=== PATIENT | female | born 1935 | race Caucasian/White ===

== ENCOUNTER → 2017-11-14 | Outpatient (CLI) | payer OTHER, SELFPAY ==
[~2017-11-14] MED LIST: ACETAMINOPHEN-1 EAC1 PO; ACETAMINOPHEN500 M1 PO; ACYCLOVIR 400400 MG PO; ALDACTONE25 MG; ASPIRIN325 PO; AUGMENTIN 875-1 EACH PO; COMBIVENT INH; CYCLOBENZAPRINE5 MG PO; DICLOFENAC SODI75 MG; DICLOFENAC SODI75 MG PO; DOXYCYCLINE 10100 MG PO; FLEXERIL PO; FLONASE 0.05%50 MCG NASAL; HYDROCHLOROTHIA25 M2 PO; HYDROCODON-ACE1 EAC7 PO; IBUPROFEN 800800 M1 PO; LASIX 20 MG TAB20 MG PO; LIDOPATCH1 EACH TOP; MIRALAX17 GM PO; NAPROSYN500 MG PO; NORCO 5-325 TA1 EACH PO; OMEPRAZOLE20 M2 PO; OTHER MISCELL; POTASSIUM CHLO10 ME1 PO; PREDNISONE 10 M10 MG PO; PRINIVIL5 MG PO; PROPAFENONE 15150 MG PO; PROTONIX40 M1 PO; QVAR8.7 G1 IH; QVAR8.7 G1 INH; SENNA-DOCUSATE1 EACH PO; SPIRONOLACTONE25 M1; SSD CREAM 1% 5050 GM TOP; TRAMADOL 50 MG50 MG PO; TUMS
--- NOTE | 2017-11-16 10:50 | S ---
[place] [address] SURGICAL PATH RPT PROCEDURE Name: DMITRY RANDOLPH Room: [facility].#: [id number] Admission: 11/14/17 Date of : 37 Discharge: Report #: [id number] Path Case #: [id number] PATHOLOGY REPORT COLLECTION DATE: 11/14/2017 RECEIVED DATE: 11/15/2017 SUBMITTING PHYS: Dr. Franklin Smith OTHER PHYS: Ronny Eubanks DO SPECIMEN(S) RECEIVED: A.Right plantar foot-wound * * * * * * * * * * * * FINAL DIAGNOSIS: Soft tissue with bone "right plantar foot wound": - Chronic inflammation with remote hemorrhage and fragmentation of bone and cartilage. See comment. COMMENT: These findings are consistent with wound. Suggest clinical and radiological correlation and follow up as clinically indicated. (SHA:[facility]; 11/16/2017) PATHOLOGIST: Grayson Ledesma M.D. REPORT ELECTRONICALLY SIGNED BY: Grayson Ledesma M.D. DATE/TIME: 11/16/2017 10:49 * * * * * * * * * * * * GROSS PATHOLOGY: The specimen is received in formalin, labeled "Dmitry Randolph right foot bone biopsy". Received is a segment of granular, dark bartholomew bone with attached light bartholomew soft tissue measuring 0.6 x 0.5 x 0.3 cm in greatest dimensions. The specimen is submitted entirely in cassette A1, following decalcification. (DAC; 11/15/2017) CLINICAL HISTORY: Wound right plantar foot INITIAL CPT CODE(S): A; 79641, 23937 Professional services performed by [facility] at [facility], [address] [place] [address] , [place] [address]. Technical services performed by [facility] at [address] [place] [address], [facility] [address], [place] [address]. [place] [address] SURGICAL PATH RPT PROCEDURE Name: DMITRY RANDOLPH Room: [facility] Khurram#: [id number] Admission: 11/14/17 Date of : 37 Discharge: Report #: [id number] Path Case #: [id number] [facility] [address] [address] PHONE: [phone] DIRECTOR: Chris Nguyen M.D. * * * END OF REPORT * * *
== END ==
LOC: M.WC 00:07
DX: L89.892 Pressure ulcer of other site, stage 2 (principal); S91.301D Unspecified open wound, right foot, subsequent encounter; M14.671 Charcot's joint, right ankle and foot; M14.672 Charcot's joint, left ankle and foot; E78.5 Hyperlipidemia, unspecified; K21.9 Gastro-esophageal reflux disease without esophagitis; Z85.828 Personal history of other malignant neoplasm of skin; Z90.710 Acquired absence of both cervix and uterus; X58.XXXD Exposure to other specified factors, subsequent encounter

== ENCOUNTER → 2017-11-21 | Outpatient (CLI) | payer OTHER | LOC: M.WC 01:54 | DX: L89.892 Pressure ulcer of other site, stage 2 (principal); M14.671 Charcot's joint, right ankle and foot; M14.672 Charcot's joint, left ankle and foot; E78.5 Hyperlipidemia, unspecified; I10 Essential (primary) hypertension; K21.9 Gastro-esophageal reflux disease without esophagitis; Z85.828 Personal history of other malignant neoplasm of skin; Z90.710 Acquired absence of both cervix and uterus ==

== ENCOUNTER → 2017-11-24 | Outpatient (CLI) | payer OTHER, SELFPAY | LOC: M.WC 01:22 | DX: E11.621 Type 2 diabetes mellitus with foot ulcer (principal); I70.235 Atherosclerosis of native arteries of right leg with ulceration of other part of foot; L97.511 Non-pressure chronic ulcer of other part of right foot limited to breakdown of skin; L89.892 Pressure ulcer of other site, stage 2; E11.610 Type 2 diabetes mellitus with diabetic neuropathic arthropathy; L84 Corns and callosities; I10 Essential (primary) hypertension; E78.5 Hyperlipidemia, unspecified; K21.9 Gastro-esophageal reflux disease without esophagitis; F41.9 Anxiety disorder, unspecified; Z85.828 Personal history of other malignant neoplasm of skin; Z90.710 Acquired absence of both cervix and uterus ==

== ENCOUNTER → 2017-11-30 | Outpatient (CLI) | payer OTHER, SELFPAY | LOC: M.WC 11:00 | DX: E11.621 Type 2 diabetes mellitus with foot ulcer (principal); L97.511 Non-pressure chronic ulcer of other part of right foot limited to breakdown of skin; L89.892 Pressure ulcer of other site, stage 2; I70.235 Atherosclerosis of native arteries of right leg with ulceration of other part of foot; E11.610 Type 2 diabetes mellitus with diabetic neuropathic arthropathy; E78.5 Hyperlipidemia, unspecified; I10 Essential (primary) hypertension; K21.9 Gastro-esophageal reflux disease without esophagitis; F41.9 Anxiety disorder, unspecified; Z85.828 Personal history of other malignant neoplasm of skin; Z90.710 Acquired absence of both cervix and uterus ==

== ENCOUNTER → 2017-12-12 | Outpatient (CLI) | payer OTHER | LOC: M.WC 01:45 | DX: L89.892 Pressure ulcer of other site, stage 2 (principal); S91.301D Unspecified open wound, right foot, subsequent encounter; M14.671 Charcot's joint, right ankle and foot; M14.672 Charcot's joint, left ankle and foot; E78.5 Hyperlipidemia, unspecified; I10 Essential (primary) hypertension; K21.9 Gastro-esophageal reflux disease without esophagitis; Z85.828 Personal history of other malignant neoplasm of skin; Z90.710 Acquired absence of both cervix and uterus; X58.XXXD Exposure to other specified factors, subsequent encounter ==

== ENCOUNTER → 2017-12-26 | Outpatient (CLI) | payer OTHER | LOC: M.WC 12-19 05:27 | DX: L89.892 Pressure ulcer of other site, stage 2 (principal); I10 Essential (primary) hypertension; L84 Corns and callosities; E78.5 Hyperlipidemia, unspecified; M14.671 Charcot's joint, right ankle and foot; M14.672 Charcot's joint, left ankle and foot; K21.9 Gastro-esophageal reflux disease without esophagitis; Z90.710 Acquired absence of both cervix and uterus; Z85.828 Personal history of other malignant neoplasm of skin ==

== ENCOUNTER → 2018-03-27 | Outpatient (CLI) | payer OTHER, SELFPAY ==
--- NOTE | 2018-07-31 15:23 | PATH ---
[address] [address] PATHOLOGY RPT PROCEDURE Name: RACHEL RANDOLPH Room: [facility] ESTELITA Paulson#: [id number] Admission: 03/27/18 Date of : 37 Discharge: Report #: [id number] Path Case #: [id number] L[facility] Accession Number: [id number] . 01 Material submitted: . RIGHT BREAST . 01 Clinical history: . 1.96 x 1.68 x 2.02 cm, 11:30 SA. . 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 See comment. LBQ/03/29/2018 . 02 Comment: Discussed with Dr. Ronny Tariq at approximately 11:45 a.m. on 03/30/2018. Reviewed with Dr. Victoriano Brown who agrees with the diagnosis. (TERRY:db; 03/30/2018) . This case was prepared and proofread by Dr. Fernando Tadeo and electronically released by Dr. Lala Plascencia. . 02 Electronically signed: . Lala Plascencia MD, Pathologist NPI- [id number] . 01 Gross description: . Received in formalin labeled "Rachel Randolph, right breast," are multiple needle cores of yellow-chamberlain fibrofatty tissue measuring 2.9 x 4.7 x 0.5 cm in aggregate dimensions. The tissue is submitted in its entirety in cassette A1 through A3. The cold ischemic time is approximately 6 minutes. The total formalin fixation time is approximately 33 hours and 40 minutes. (TSD; 03/27/2018) TOB/TOB . 02 Pathologist provided ICD-10: D24.1, N60.31, N61.0, N60.41, N62 . 02 CPT . 292699 Specimen Comment: A duplicate report has been generated [place] [address] PATHOLOGY RPT PROCEDURE Name: RACHEL RANDOLPH Room: [facility]#: [id number] Admission: 03/27/18 Date of : 37 Discharge: Report #: [id number] Path Case #: [id number] Performed at: 01 [facility] [address] [place] [address] [address], [place], [place] [id number] MD Jacques Damian MD Phone: [phone] Performed at: [address] [id number] MD Lala Plascencia MD Phone: [phone]
== END | disposition home or self-care (01) ==
LOC: M.ULTRA 07:50
DX: D24.1 Benign neoplasm of right breast (principal); N60.31 Fibrosclerosis of right breast; N61.0 Mastitis without abscess; N60.41 Mammary duct ectasia of right breast; N62 Hypertrophy of breast; R92.1 Mammographic calcification found on diagnostic imaging of breast; I10 Essential (primary) hypertension; E78.00 Pure hypercholesterolemia, unspecified; M19.90 Unspecified osteoarthritis, unspecified site; Z90.710 Acquired absence of both cervix and uterus; Z79.899 Other long term (current) drug therapy; Z88.8 Allergy status to other drugs, medicaments and biological substances; Z98.890 Other specified postprocedural states; Z88.2 Allergy status to sulfonamides; Z87.19 Personal history of other diseases of the digestive system

== ENCOUNTER 2018-04-05 09:41 | Inpatient (IN) | payer OTHER, SELFPAY ==
[~2018-04-05] VITALS: Ht 157.5 cm; Wt 65.8 kg
[~2018-04-05 09:41] MED LIST changes: -ACETAMINOPHEN500 M1 PO; -ASPIRIN325 PO; -AUGMENTIN 875-1 EACH PO; -CYCLOBENZAPRINE5 MG PO; -HYDROCODON-ACE1 EAC7 PO; -PROPAFENONE 15150 MG PO; -PROTONIX40 M1 PO; -SSD CREAM 1% 5050 GM TOP
[2018-04-05 09:42] VITALS: BP 124/61
[2018-04-05] MEDS ORDERED: SSD CREAM 1% 5050 GM TOP (10:34)
[2018-04-05 10:36] LABS: ANION GAP 9 mmol/L (7-16); BUN 57 mg/dL (7-18); CALCIUM 9.9 mg/dL (8.5-10.1); CHLORIDE 105 mmol/L (98-107); CO2 23 mmol/L (21-32); GLUCOSE 109 mg/dL (70-99); POTASSIUM 4.2 mmol/L (3.5-5.1); SODIUM 137 mmol/L (136-145)
[2018-04-05 10:38] LABS: APTT 28.5 Seconds (25.0-31.3); INR 1.2; PROTIME 11.2 Seconds (9.20-11.50)
[2018-04-05 10:48] LABS: ALBUMIN 1.5 g/dL (3.4-5.0); ALKALINE PHOSPHATASE 295 U/L (46-116); NT-PRO BRAIN NAT PEPTIDE 6548 pg/mL (<300); SGOT 17 U/L (15-37); SGPT 14 U/L (30-65); TOTAL BILIRUBIN 0.8 mg/dL (<0.1-1.0); TOTAL PROTEIN 6.3 g/dL (6.4-8.2); TROPONIN-I LEVEL <0.06 ng/mL (<0.06)
[2018-04-05 10:53] LABS: HEMATOCRIT 27.4 % (37.0-47.0); HEMOGLOBIN 8.8 gm/dL (12.0-15.0); MCH 25.7 pg (26.0-34.0); MCV 80.2 fL (80.0-100.0); MPV 7.7 fl. (7.2-11.1); NUCLEATED RBCS 1 /100WBC; PLATELET COUNT* 319 thou/uL (150-400); RBC 3.41 mil/uL (4.20-5.00); RDW-CV 16.6 % (10.5-14.5)
[2018-04-05 10:55] LABS: WBC 40.7 thou/uL (4.0-11.0)
[2018-04-05 11:16] LABS: ABSOLUTE LYMPHOCYTES 1.2 thou/uL (0.8-5.3); ABSOLUTE MONOCYTES 1.2 thou/uL (0.0-1.2); ABSOLUTE NEUTROPHILS 38.3 thou/uL (1.6-8.1); ATYPICAL LYMPHS 1 %; PLATELET ESTIMATE ADEQUATE
[2018-04-05 12:20] LABS: URINE BILIRUBIN NEGATIVE (Negative); URINE BLOOD NEGATIVE (Negative); URINE CLARITY CLEAR; URINE COLOR YELLOW; URINE GLUCOSE-RANDOM NEGATIVE (Negative); URINE KETONES NEGATIVE (Negative); URINE LEUKOCYTES-REFLEX NEGATIVE (Negative); URINE NITRITE-REFLEX NEGATIVE (Negative); URINE PROTEIN TRACE (Negative); URINE UROBILINOGEN 0.2 E.U./dl (0.2-1.0)
[2018-04-05 13:26] VITALS: BP 105/43
--- NOTE | 2018-04-05 15:50 | NUR ---
PT ARRIVED TO THE FLOOR AT 1335. PT ORIENTED TO UNIT AND SERVICES, FOOD AND DRINK OFFERED. NURSING ASSESSMENT COMPLETED, SIGN LANGUAGE TRANSLATOR APPLIED. MEDICATIONS RECONCILED. PICTURES OF WOUNDS OBTAINED. PT RESTING IN BED WITH EYES CLOSED. NURSING WILL CONTINUE TO MONITOR.
[2018-04-05 16:00] VITALS: BP 108/34
--- NOTE | 2018-04-05 17:42 | NUR ---
PT CONTINUES TO BE A&O BUT LETHARGIC AND EASILY ARROUSED. PT HAS NO C/O AT THIS TIME AND ONLY ATE 25% OF HER DINNER. NURSING WILL CONTINUE TO MOONITOR AND COMPLETE HOURLY ROUNDING FOR SAFTEY AND COMFORT.
[2018-04-05 20:00] VITALS: BP 120/51
[2018-04-06] VITALS: BP 121/47
[2018-04-06 04:00] VITALS: BP 118/49
--- NOTE | 2018-04-06 06:52 | NUR ---
PATIENT RESTING IN BED MOST OF THE NIGHT, CONT. SR ON MONITOR. BED IN LOW POSITION, CALL LIGHT IN REACH, BED ALARM ON. DENIES COMPLAINTS OF PAIN, DISCOMFORT OR SOA. CONT. WITH PLAN OF CARE.
--- NOTE | 2018-04-06 07:33 | CON ---
[address] [address] CONSULTATION Name: AGUSTÍNDMITRY Helene Room: [address] IN M.R.#: [id number] Admission: 04/05/18 Attend Phys: Tawana Mcpherson Discharge: Date of : 36 Report #: [id number] THIS REPORT FOR: //name// CC: Ronny Eubanks Quincy Loyd DATE OF SERVICE: 04/05/2018 INFECTIOUS DISEASE CONSULTATION ATTENDING PHYSICIAN: Quincy Loyd DO REASON FOR CONSULTATION: Right lower extremity skin and soft tissue infection with cellulitis. HISTORY OF PRESENT ILLNESS: Chart reviewed, patient examined. This is an 82-year-old with history of chronic lower extremity wounds, specifically plantar aspect in the setting of what appears to be Charcot foot, although there is no evidence of diabetes mellitus, presented to the Emergency Room complaining of right lower extremity pain with progressive weakness, anorexia and family noted encephalopathy as well. Apparently, he has not had fevers, pulmonary or gastrointestinal related complaints. Has no evidence of diarrhea. On evaluation, had markedly elevated white count of 40.7. Chest x-ray, nothing to suggest pneumonitis. Lactic acid of 1.9, but x-ray did show changes consistent with Charcot arthropathy. There are no focal areas. There is question of osteomyelitis or fluid collection subcutaneously, given a dose of ceftriaxone and vancomycin. ALLERGIES: SULFA, STATINS, DIVALPROEX, CIPRO, TRAMADOL, SERTRALINE, ATORVASTATIN, ROSUVASTATIN. CURRENT MEDICATIONS: Include vancomycin, furosemide, lisinopril, ceftriaxone, pantoprazole, diclofenac. PAST MEDICAL HISTORY: History of hypertension, arthritis, high cholesterol, hernia, history of right foot previous MRSA related infection. SOCIAL HISTORY: Nonsmoker, no ethanol. FAMILY HISTORY: Noncontributory. REVIEW OF SYSTEMS: Not reliably obtained. PHYSICAL EXAMINATION: GENERAL: She appears chronically ill. She is not overtly distressed, difficult to arouse, [place] [address] CONSULTATION Name: DMITRY RANDOLPH Helene Room: [address] IN [facility]#: [id number] Admission: 04/05/18 Attend Phys: Tawana Mcpherson Discharge: Date of : 37 Report #: [id number] VITAL SIGNS: Temperature 97.4, pulse 88, respirations 11, blood pressure 105/43. SKIN: Warm, dry, no rashes. HEENT: Otherwise, unremarkable. NECK: Supple. LUNGS: Diminished breath sounds. HEART: Regular. I do not appreciate a murmur. ABDOMEN: Soft, nontender, nondistended. EXTREMITIES: On right lower extremity, there is clear inflammatory changes, although swollen, was not tautly edematous. Does have a plantar ulcer that appears to be chronic. There is marginal callus mildly to moderately inflamed. There is no significant purulence noted. It is warm to touch relative to the contralateral leg. LABORATORY AND X-RAY DATA: Lung exam is otherwise unremarkable. Protime of 11.2, INR 1.2. Electrolytes: Sodium 137, potassium 4.2, chloride 105, bicarbonate 23, BUN and creatinine 57 and 2.0, anion gap of 9, glucose of 109. LFTs remarkable only for alkaline phosphatase of 295, albumin 1.5, total protein 6.3. Chest x-ray, right rib fractures and humeral fracture, cardiomegaly. Lactic acid 1.9. CBC: White count of 40.7, H and H 8.8 and 27.4, platelets of 319. Urinalysis unremarkable. ASSESSMENT: Right lower extremity skin and soft tissue infection, cellulitis, the evidence is not certain that there is no deeper infection involved, difficult to ascertain given the Charcot changes. We will see how she responds clinically. We would try to culture the site. Continue empiric antimicrobials. <ELECTRONICALLY SIGNED> By: Javan Cantu MD 04/06/18 0733 [id number] Cantu MD /nt
[2018-04-06 08:00] VITALS: BP 128/53
[2018-04-06 12:21] VITALS: BP 108/30
--- NOTE | 2018-04-06 13:36 | NUR ---
ASSUMED CARE OF PT AT 0730. PT CONTINUES TO BE A&O AND FORGETFUL AND CONFUSED AT TIMES. VSS ON 2L VIA NC. PT TRACIN ST ON THE MONITOR. PT HAS A POOR APPETEITE AND IS EATING LESS THAN 25% OF HER MEALS. PT VOIDING VIA BEDPAN, LIGHT YELLOW URINE. PT HAS HAD C/O RLE PAIN BUT DENIES THE NEED FOR PHARMACOLOGICAL INTERVENTION. WILL CONTINUE HOURLY ROUNDING FOR COMFORT AND SAFTEY.
--- NOTE | 2018-04-06 15:40 | NUR ---
CM SPOKE TO THE PATIENT TO DISCUSS HOME SITAUTION, DISCHARGE PLANNING, AND TO INFORM OF THE ROLE OF CM. PATIENT ALERT, BUT FORGETFUL. PATIENTS DTR DEENA IN THE ROOM AND ANSWERING MOST QUESTIONS FOR THE PATIENT. PATIENT RESIDES AT HOME WITH HER GRANDSON AND HE ASSIST THE PATIENT NEEDED. PATIENTS DTR DEENA ALSO ASSIST THE PAIENT WITH WOUND CARE AND TRANSPORTATION, AND CHECKS IN ON HER FREQUENTLY. PATIENT USE A WALKER AT HOME FOR MOBILITY, BUT HAS A WHEELCHAIR TO USE INSIDE THE HOME AND A TRANSPORT CHAIR FOR OUTINGS. PATIENT HAS A HX OF HH WITH [facility] IN THE PAST. PATIENT HAS NO HX OF SNF AND DTR PLANS TO HAVE THE PATIENT RETURN HOME AT D/C. CM WILL REMAIN AVAILABLE TO ASSIST AND FOLLOW NEEDED.
[2018-04-06 16:05] VITALS: BP 109/41
--- NOTE | 2018-04-06 17:05 | EKG ---
[place] [address] ELECTROCARDIOGRAM REPORT Name: DMITRY RANDOLPH Room: [address] IN .R.#: [id number] Admission: 04/05/18 Attend Phys: Tawana Mcpherson Discharge: Date of : 36 Report #: [id number] THIS REPORT FOR: //name// [facility] ED Test Date: 2018-04-05 Test Time: 10:01:39 Pat Name: DMITRY RANDOLPH Department: Room: Gender: F Optical Glass Wet Inspector: Helene GELLER : 1935 Requested By: Franki Montelongo Order Number: [id number] MD: Thomas Rodas Measurements Intervals [place] Rate: 101 P: 49 RI: 161 QRS: 45 QRSD: 85 T: 33 QT: 320 QTc: 415 Interpretive Statements Sinus tachycardia Compared to ECG 10/06/2017 02:38:59 Sinus rhythm no longer present Electronically Signed On 04-06-2018 17:05:33 CDT by Thomas Rodas [email or web address] <ELECTRONICALLY SIGNED> By: Thomas Rodas MD, [facility] 04/06/18 7529 100 100 Thomas Rodas MD, [facility] /EPI
[2018-04-06 20:00] VITALS: BP 101/51
[2018-04-07 00:39] VITALS: BP 108/46
--- NOTE | 2018-04-07 00:50 | NUR ---
RECIEVED REPORT AND ASSUMED CARE OF PATIENT AT 1930. DIRECTOR OF BROADCAST IN PLACE TRACING SR W/ OCCASIONAL PACS. ASSESSMENT AND VITALS COMPLETED CHARTED, VSS. 2L O2 NC IN PLACE WITH SATS >92%. PATIENT A&OX4, FORGETFUL AT TIMES. PATIENT DENIES PAIN AND DISCOMFORT, HOWEVER, MOANS UPON MOVEMENT. VOLTAREN PO ADMINISTERED PER EMAR. GOAL IS TO MAINTAIN O2 SATURATION >92% ON 2L O2 NC AND REST COMFORTABLY. CALL LIGHT WITHIN REACH
[2018-04-07 04:23] VITALS: BP 127/50
--- NOTE | 2018-04-07 05:04 | NUR ---
PATIENT PROGRESSING TOWARDS GOALS: PATIENT REMAINS ON 2L O2 NC WITH SATS >92%. PATIENT RESTED COMFORTABLY THIS SHIFT. CALL LIGHT WITHIN REACH
[2018-04-07 08:00] VITALS: BP 144/65
[2018-04-07 12:29] VITALS: BP 109/59
[2018-04-07 17:24] VITALS: BP 116/56
--- NOTE | 2018-04-07 18:54 | NUR ---
ASSUMED CARE OF PT AT 0730. PT CONTINUES TO BE ALERT AND CONFUSED AT TIMES AND FORGETFUL. VSS ON 2L VIA NC. TRACING SR ON THE MONITOR, C/O BACK PAIN THIS MORNING WERE EFFECTIVELY REDUCED TO TOLERABLE LEVELS WITH PRN PO PAIN MEDS. PT HAS BEEN VOIDNG VIA BEDPAN AND HER APPETITE IS BETTER TODAY, EATING GREATER THAN 25% OF ALL MEALS TODAY. PT HAD WOUND TO RIGHT ANKLE AND FOOT. NURSING WILL CONTINUE TO MONITOR.
[2018-04-07 20:00] VITALS: BP 106/37
[2018-04-08] VITALS: BP 141/51
[2018-04-08 04:00] VITALS: BP 133/45
--- NOTE | 2018-04-08 04:40 | NUR ---
ASSUMED CARE OF PATIENT AT 1930. ASSESSMENT AND VITALS COMPLETED CHARTED, VSS ON 2L O2 NC. PATIENT PARTIALLY PROGRESSING TOWARDS GOALS: PATIENT REMAINS ALERT BUT CONFUSED AND FORGETFUL AT TIMES. PATIENT REMAINS INCONTINENT OF URINE. PAIN MANAGEMENT WITH PO PAIN MEDICATION AND REPOSITIONING. HOURLY ROUNDING OBSERVED. CALL LIGHT WITHIN REACH
[2018-04-08 05:07] LABS: HEMATOCRIT 24.4 % (37.0-47.0); HEMOGLOBIN 8.1 gm/dL (12.0-15.0); MCH 26.2 pg (26.0-34.0); MCHC 33.2 g/dL (28.0-37.0); MCV 78.7 fL (80.0-100.0); NUCLEATED RBCS 0 /100WBC; RBC 3.09 mil/uL (4.20-5.00); RDW-CV 16.2 % (10.5-14.5); WBC 28.7 thou/uL (4.0-11.0)
[2018-04-08 05:38] LABS: ALBUMIN 1.2 g/dL (3.4-5.0); CALCIUM 8.1 mg/dL (8.5-10.1); CREATININE 1.8 mg/dL (0.6-1.3); TOTAL BILIRUBIN 0.7 mg/dL (<0.1-1.0)
[2018-04-08 05:58] LABS: PLATELET COUNT* 242 thou/uL (150-400)
[2018-04-08 06:41] LABS: ABSOLUTE EOSINOPHILS 0.6 thou/uL (0.0-0.7); ABSOLUTE LYMPHOCYTES 1.4 thou/uL (0.8-5.3); ABSOLUTE MONOCYTES 1.7 thou/uL (0.0-1.2); ANISOCYTOSIS 1+; HYPOCHROMASIA 1+; PLATELET ESTIMATE ADEQUATE; POIKILOCYTOSIS 1+
[2018-04-08 10:00] VITALS: BP 135/54
[2018-04-08 12:00] VITALS: BP 120/42
[2018-04-08 16:00] VITALS: BP 102/48
--- NOTE | 2018-04-08 18:43 | NUR ---
ASSUMED CARE OF PT AT 0730. PT CONTINUES TO BE ALERT BUT CONFUSED AT TIMES, SHE MAKES STATEMENTS SUCH .'I MADE SOME RIBS AND WALDRON IN THERE FOR YOU.' PT VSS AND TRACING NSR ON THE MON ITOR. SHE HAS BEEN INCONT OF BLADDER TODAY AND HAD A BM ON THE BEDPAN. DRESSING TO RIGH FOOT CHANGED AND PICS TAKEN. PT RESTING IN BED WATCHING TV, NO APPARENT PAIN OR DISTRESS. NURSING WILL CONTINUE TO MONITOR.
[2018-04-08 20:18] VITALS: BP 126/54
[2018-04-09 00:15] VITALS: BP 122/54
[2018-04-09 04:09] VITALS: BP 116/48
--- NOTE | 2018-04-09 04:21 | NUR ---
ASSUMED PT CARE AT 1930, NURSING ASSESSMENT COMPLETED AT START OF SHIFT. PT TRACING SINUS RHYTHM WITH OCCASIONAL PACS ON FREIGHT ELEVATOR OPERATOR. Q2H REPOSITIONING COMPLETED, HOURLY ROUNDING COMPLETED, IV FLUIDS INFUSING. PRN PAIN MEDICATION ADMINSTERED, CALL LIGHT WITHIN REACH. NO FALLS THIS SHIFT.
[2018-04-09 05:38] LABS: HEMATOCRIT 21.3 % (37.0-47.0); MCH 26.1 pg (26.0-34.0); MCHC 32.7 g/dL (28.0-37.0); MCV 79.7 fL (80.0-100.0); RBC 2.68 mil/uL (4.20-5.00); WBC 26.7 thou/uL (4.0-11.0)
[2018-04-09 06:04] LABS: CREATININE 1.5 mg/dL (0.6-1.3); POTASSIUM 4.3 mmol/L (3.5-5.1); TOTAL BILIRUBIN 0.8 mg/dL (<0.1-1.0); TOTAL PROTEIN 5.6 g/dL (6.4-8.2)
--- NOTE | 2018-04-09 07:59 | NUR ---
PT RESTING IN BED, APPEARS O X 3-4 FORGETFUL, EASILY CONFUSED, WAS AABLE TO STATE SHE WAS AT [facility], STATES WAS MARCH 2018, UNSURE OF EXACT DATE. PT IS ABLE TO MAKE NEEDS KNOWSN, DENIES CHEST PAIN, SOB, PAIN OR DISCOMFORT. CONTACT ISOLATION FOR MRSA, R FOOR WOUND, HGB 7.0, WILL UPDATE PHYSICIAN STAFF
--- NOTE | 2018-04-09 08:08 | NUR ---
CALLED ANSWERING SERVICE, ALIN REQUEST CALL BACK FROM PROVIDER, [facility] 7.0
[2018-04-09 08:11] VITALS: BP 128/42
[2018-04-09 10:58] LABS: % SATURATION 12 % (20-39); IRON 16 ug/dL (50-175)
[2018-04-09 12:05] VITALS: BP 135/48
[2018-04-09 15:35] VITALS: BP 134/52
--- NOTE | 2018-04-09 18:37 | NUR ---
PT RESTING IN BED, PROGRESSING TOWARDS GOALS, INCONTINENT OF URINE TODAY, C/O GENERALIZED WEAKNESS, O X 3-4 FORGETFUL,EASILY CONFUSED , DENIES CHEST PAIN, SOB, . HAS R FOOT WOUND, FOLLWED BY ID, IS IN CONTACT ISIOLATION FOR MRSA. WOUND CARE , HAS BEEN CONSULTED. FOLLOWS WEOUND CARE OUT PATIENT. PT HAS R FOOT WOUND DRESSING THAT APPEARS C/D/I. ON IV ABX. SR ON MONITOE, REC IVF NS C 20 K AT 50 ML X 1 BAG , HGB 7,0 THIS AM, NO ORDERS TO TRANSFUSE
[2018-04-09 19:44] VITALS: BP 119/49
[2018-04-10] VITALS (7 sets, daily range): BP systolic 118–147; BP diastolic 47–74
[2018-04-10 05:08] LABS: HEMATOCRIT 21.5 % (37.0-47.0); MCH 25.7 pg (26.0-34.0); MCHC 31.6 g/dL (28.0-37.0); MCV 81.3 fL (80.0-100.0); RBC 2.64 mil/uL (4.20-5.00); RDW-CV 15.9 % (10.5-14.5); WBC 17.2 thou/uL (4.0-11.0)
--- NOTE | 2018-04-10 05:19 | NUR ---
ASSUMED PT CARE AT 1930, NURSING ASSESSMENT COMPLETED AT START OF SHIFT, PT VOICED NO CONCERNS THIS SHIFT. PT TRACING SR WITH PACS AT START OF SHIFT. AT APPROX 2330, PT TRACING AFIB/AFLUTTER WITH HR IN 90'S TO 11O'S. RHYTHM BACK AND FORTH FROM SR WITH PACS TO AFIB. EKG OBTAINED. PT BACK IN SINUS RHYTHM WITH PACS WITH HR OF 81 AT 0524. Q2H REPOSITIONING COMPLETED, PT REFUSED TO TURN AT TIMES. PT EDUCATED ON IMPORTANCE OF REPOSITIONING Q2H TO PREVENT SKIN BREAKDOWN. PT REQUIRES REINFORCEMENT. HOURLY ROUNDING COMPLETED, CALL LIGHT WITHIN REACH. NO FALLS THIS SHIFT.
[2018-04-10 05:24] LABS: CALCIUM 7.6 mg/dL (8.5-10.1); CREATININE 1.4 mg/dL (0.6-1.3); POTASSIUM 4.2 mmol/L (3.5-5.1)
[2018-04-10 05:27] LABS: HEMOGLOBIN 6.8 gm/dL (12.0-15.0)
--- NOTE | 2018-04-10 05:45 | NUR ---
CRITICAL LAB REPORTED TO DR. MARRUFO AT 0540. NEW ORDERS RECEIVED FOR TYPE & SCREEN AND 1 UNIT PRBC.
--- NOTE | 2018-04-10 07:43 | NUR ---
PT C/O NOT BEING ABLE TO BREATHE, PT REPOSITIONED IN BED, VVS, O2 SAT 99% ON 1L NC. CLEAR LUNG SOUNDS. DENIES PAIN, INSTRUCTED PT TO SLOW, DEEP BREATHING. PT ANXIOUS. DR. MARRUFO NOTIFIED AT 0700. CALL BACK RECEIVED AT 0747. NEW ORDERS FOR ATIVAN 1 MG IVPUSH X1.
--- NOTE | 2018-04-10 08:19 | NUR ---
ASSUMED PT. CARE AND RECEIVED REPORT AT 0730. PT ANXIOUS INITIALLY THIS MORNING. STATES SHE IS SHORT OF BREATH. ON 2L NC @98%, WITH CLEAR LUNG SOUNDS. VSS, MONITOR ON TRACING SR WITH PAC. FULL ASSESSMENT COMPLETED, REFER TO CHARTING. DISCUSSED PLAN OF CARE WITH PT- OXYGEN, BLOOD TRANSFUSION, DR. GARRIDO. PT. VERBALIZED UNDERSTANDING. ONCE PT. WAS ABLE TO TALK WITH DAUGHTER SHE CALMED. SPOKE WITH DR. GARRIDO'S OFFICE, WILL KEEP NPO AT THIS TIME PER REQUEST. PT. REPOSITIONED IN BED, CALL LIGHT IN REACH. WILL CONTINUE WITH PLAN OF CARE.
--- NOTE | 2018-04-10 13:40 | NUR ---
Podiatry to see Pt today. Scheduled MRI of foot today. Dtr here in room. Following for disposition.
--- NOTE | 2018-04-10 15:15 | EKG ---
[place] [address] ELECTROCARDIOGRAM REPORT Name: AGUSTÍNDMITRY Room: [address] ADM IN M.R.#: [id number] Admission: 04/05/18 Attend Phys: Tawana Mcpherson Discharge: Date of : 36 Report #: [id number] THIS REPORT FOR: //name// [facility] Test Date: 2018-04-10 Test Time: 01:56:43 Pat Name: DMITRY RANDOLPH Department: Room: [address] Gender: F Line Installer Repairer: : 1935 Requested By: Quincy Loyd Order Number: [id number] Jean Carlos MD: Tereso Lima Measurements Intervals [place] Rate: 109 P: DE: QRS: 40 QRSD: 86 T: 28 QT: 326 QTc: 440 Interpretive Statements Atrial fibrillation Anterior infarct, old Baseline wander in lead(s) V2 Compared to ECG 04/05/2018 10:01:39 Myocardial infarct finding now present Sinus tachycardia no longer present Electronically Signed On 04-10-2018 15:15:11 CDT by Tereso Lima [email or web address] <ELECTRONICALLY SIGNED> By: Tereso Lima MD, [facility] 04/10/18 1515 [id number] [id number] Tereso Lima MD, [facility] /EPI
--- NOTE | 2018-04-10 15:56 | NUR ---
WOUND CARE NOTE: CONSULT RECEIVED FOR WOUNDS TO RIGHT FOOT. PATIENT WAS SEEN BY PODIATRY AND HAD DRESSING CHANGED AT THAT TIME. WILL DEFER ASSESSMENT AT THIS TIME.
--- NOTE | 2018-04-10 18:10 | NUR ---
PT. REMAINED CALM AND COOPERATIVE THROUGH THE AFTERNOON. COMPLETED BLOOD TRANSFUSION, TOLERATED WELL. DR. GARRIDO INTO SEE AND COMPLETED WOUND CARE. AQUACELL AG PLACED AT BEDSIDE FOR CONTINUED CARES TOMORROW BY DR. GARRIDO PER REQUEST. DR. RICHARDSON NOTIFIED UPON ARRIVAL OF PT. AFIB THROUGH THE NIGHT, CV CONSULT OBTAINED. PT. PRETREATED FOR MRI WITH 1MG ATIVAN, PT. HAS BEEN SLEEPING SINCE RETURN. WILL AROUSE WHEN PROMPTED, BUT VERY DROWSY. HOURLY ROUNDING COMPLETED THROUGH OUT THE DAY FOR PT. SAFETY. PT. DAUGHTER HERE AND ABLE TO SPEAK WITH ALL DOCTORS EXCEPT DR. RICHARDSON. UPDATED ON PLAN OF CARE THROUGH OUT THE DAY.
[2018-04-11 00:01] VITALS: BP 147/71
--- NOTE | 2018-04-11 03:25 | NUR ---
ASSUMED PT CARE AT 1930. ASSESSMENT COMPLETED CHARTED. PT SLEEPING SINCE BEGINNING OF SHIFT, GETS IRRITATED AT STAFF WHEN MESSING WITH HER. NO C/O PAIN OR DISCOMFORT. VSS. 2L OF O2 ON. IV PATIENT. DRESSING INTACT ON RIGHT ANKLE WITH BOOT ON RIGHT FOOT. PT ON BEDREST. AWAKENS SLIGHTLY TO ANSWER A QUESTION THEN FALLS BACK ASLEEP. WILL CONTINUE TO MONITOR AND ASSESS.
[2018-04-11 04:00] VITALS: BP 172/63
[2018-04-11 08:00] VITALS: BP 152/66
[2018-04-11 09:19] LABS: ABSOLUTE BASOPHILS 0.1 thou/uL (0.0-0.2); ABSOLUTE EOSINOPHILS 0.1 thou/uL (0.0-0.7); ABSOLUTE LYMPHOCYTES 0.7 thou/uL (0.8-5.3); ABSOLUTE MONOCYTES 0.6 thou/uL (0.0-1.2); ABSOLUTE NEUTROPHILS 13.5 thou/uL (1.6-8.1); BASOPHILS 0.7 %; EOSINOPHILS 0.9 %; HEMATOCRIT 28.9 % (37.0-47.0); LYMPHOCYTES 4.6 %; MCH 26.6 pg (26.0-34.0); MCHC 32.3 g/dL (28.0-37.0); MCV 82.3 fL (80.0-100.0); MONOCYTES 3.9 %; MPV 8.4 fl. (7.2-11.1); NUCLEATED RBCS 0 /100WBC; PLATELET COUNT* 318 thou/uL (150-400); POLYS 89.9 %; RBC 3.51 mil/uL (4.20-5.00); RDW-CV 16.7 % (10.5-14.5)
[2018-04-11 09:21] LABS: HEMOGLOBIN 9.3 gm/dL (12.0-15.0)
--- NOTE | 2018-04-11 11:17 | NUR ---
RECEIVED REPORT FROM [facility] AND ASSUMED CARE OF PT @ 0900.PT IS A/O X4 BUT FORGETFUL.VSS,TRACING SR ON THE MONITOR.LUNG SOUNDS ARE CLEAR DIMINSHED.LAST BM WAS TODAY.IV LEFT WRIST PATENT AND SALINE LOCKED.PT IS CALM AND COOPERATIVE WITH NO C/O PAIN AT TIME OF ASSESSMENT.PT IS BEDREST UNTIL ASSESSED BY THE DOCTOR.ISOLATION MAINTAINED.WILL CONTINUE TO MONITOR.
[2018-04-11 12:39] VITALS: BP 146/59
--- NOTE | 2018-04-11 13:18 | NUR ---
WOUND CARE NOTE: CONSULT RECEIVED FOR WOUNDS TO RIGHT FOOT ASSESSMENT WAS COMPLETED WITH ZOO CARETAKER. PATIENT PRESENTS WITH 2 FOOT, BELIEVE TO BE PRESSURE RELATED IN NATURE. THE WOUND TO THE PLANTAR SURFACE OF HER FOOT IS COMPLICATED BY CHARCOT FOOT CHANGES. RIGHT LATERAL MALLEOLUS: FULL THICKNESS ULCERATION, UNSTAGEABLE PRESSURE ULCER MEASURING 2X2X0.6. YELLOW, MOIST SLOUGH TO 100% OF WOUND BED. FOUL ODOR NOTED. ANDRZEJ-WOUND INFLAMMED. WOUND WAS CLEANSED WITH WOUND CLEANSER, PATTED DRY. APPLIED AQUACEL AG INTO WOUND BED, COVERED WITH ABDS. SECURED WITH KERLIX AND JUSTO. RIGHT FOOT, PLANTAR SURFACE: STAGE 3 PRESSURE ULCER. WOUND MEASURES 0.8X1X0.2. ANDRZEJ-WOUND MACERATED AND CALLUSED. WOUND BED IS RED, MOIST. WOUND WAS CLEANSED WITH WOUND CLEANSER, PATTED DRY. APPLIE DAQUACEL AG INTO WOUND BED, COVERED WITH ABDS. SECURED WITH KERLIX AND JUSTO. EDUCATED PATIENT ON IMPORTANCE OF KEEPING HER FOOT UP OFF OF THE BED TO PROMOTE HEALING OF THE WOUNDS, COMMUNICATED UNDERSTANDING, BUT WILL NEED REINFORCEMENT. RECOMMEND OFFLOAD RIGHT FOOT OFF BED WITH PILLOWS-FEAR OFFLOADING BOOTS MAY NOT APPROPRIATELY OFFLOAD DUE TO CHARCOT DEFORMITY ENCOURAGE GOOD NUTRITION AND HYDRATION FOR WOUND HEALING FOLLOW UP IN WOUND CENTER UPON DISCHARGE
[2018-04-11 16:18] VITALS: BP 103/70
--- NOTE | 2018-04-11 17:05 | CON ---
[address] [address] CONSULTATION Name: DMITRY RANDOLPH Room: [address] IN M.R.#: [id number] Admission: 04/05/18 Attend Phys: Tawana Mcpherson Discharge: Date of : 37 Report #: [id number] THIS REPORT FOR: //name// CC: Ronny Brar DATE OF SERVICE: 04/11/2018 HISTORY OF PRESENT ILLNESS: The patient is an 82-year-old single white female who I was asked to see in the hospital today after she had an episode of atrial fibrillation. The patient has had multiple hospitalizations here at [place]. She is not very active because of her age and uses a cane. She lives with a grandson in [place]. She has been followed by my partner, Dr. Thomas Rodas. She has a history of chronic kidney disease and chronic diastolic heart failure. She has chronic edema and has been on diuretics. Previous cardiac workup included an echocardiogram in September that showed left ventricular hypertrophy, ejection fraction 60%, left atrial enlargement, mild mitral regurgitation. The patient was last seen by my nurse practitioner, Fatmata Up in November. She had been going to the wound clinic for an infection of her right foot. She has been on chronic diuretics. The patient was admitted to the hospital on April 05, when paramedics brought her here. She complained of pain in her leg with an open wound on her right foot and she had been going to the wound clinic. She had no appetite. She had increasing swelling, redness and she was confused. After admission, she was placed on antibiotics. She was seen by infectious disease and podiatry. The patient was found to have Staph aureus infection of her foot and has been going under treatment. The patient was lying in bed 2 nights ago when she was noted to go into an irregular heartbeat. A 12-lead ECG 2 nights ago showed atrial fibrillation with a controlled response. She converted to sinus rhythm. Cardiology consultation was requested. The patient actually denied any chest pain, shortness of breath, palpitations, or lightheadedness. PAST MEDICAL HISTORY: Otherwise significant for hysterectomy, cataract extraction, hypertension, dyspepsia, she has a chronic arthritis and barely can move her arms. MEDICATIONS: Consists of Voltaren, Lasix, Prinivil, Prilosec, and potassium. ALLERGIES: To SULFA DRUGS. FAMILY HISTORY: Negative for heart disease. SOCIAL HISTORY: She is , lives with a grandson. [place] [address] CONSULTATION Name: DMITRY RANDOLPH Helene Room: [address] IN ..#: [id number] Admission: 04/05/18 Attend Phys: Tawana Mcpherson Discharge: Date of : 37 Report #: [id number] REVIEW OF SYSTEMS: She has had no history of stroke or asthma. She has a lot of indigestion. She has chronic kidney disease. She has had a skin cancer removed. She is very hard of hearing. PHYSICAL EXAMINATION: GENERAL: Revealed an elderly frail appearing female, lying in bed, she appeared in no acute distress. VITAL SIGNS: Showed a blood pressure of 140/60, pulse is 80, she is afebrile. HEENT: She was anicteric. Conjunctivae are pink. Mucous members appear dry. NECK: Veins nondistended. No carotid bruit. CHEST: Clear to auscultation. HEART: Regular rate and rhythm, grade 2 systolic ejection murmur. ABDOMEN: Soft, nontender. EXTREMITIES: Had trace edema. SKIN: Cool and dry. NEUROLOGIC: She is very slow moving. PSYCHIATRIC: Mood, she appeared somewhat depressed. Her ECG on admission appeared to show a sinus rhythm, no ST or T-wave changes. ECG from the night of april 09, at 1:00 in the morning showed what appeared to represent atrial fibrillation with a controlled response, no ST or T-wave changes. LAB WORK: Sodium 138, creatinine is 1.4 and has been as high as 2.0 on admission. Her BNP is 6548. Her white blood cell count 17.2, hemoglobin is down to 6.8, it was actually 8.8 last September. She had a ferritin of 291, percent saturation 12%. Her chest x-ray on admission showed cardiomegaly, hiatal hernia, otherwise clear lung mata. IMPRESSION AND RECOMMENDATIONS: 1. Episode of atrial fibrillation. Asymptomatic. The patient does not appear to be a very good candidate for anticoagulation because of anemia. The rate was controlled. I would not recommend antiarrhythmic therapy at this time. Certainly if she has recurrent atrial fibrillation, I will consider an agent to prevent recurrent atrial fibrillation such as propafenone or flecainide. 2. Hypertension. The patient has been on JUSTO inhibitor. 3. Anemia. No obvious bleeding. 4. Degenerative joint disease. 5. Venous stasis ulcer. <ELECTRONICALLY SIGNED> By: Tereso Lima MD, [facility] 04/11/18 1705 0843 [id number] Lima MD, [facility] /nt
--- NOTE | 2018-04-11 18:25 | NUR ---
VSS,CARDIAC MONITORING IN PLACE WITH NO CHANGES THIS SHIFT.PT REMAINS ON 2L O2 NC.PT HAS DENIED PAIN THIS SHIFT.IV ANTIBIOTICS COMPLETED.ISOLATION MAINTAINED.PT HAS BEEN UP TO CHAIR WITH ASSIST OF TWO. SAW PT AND REDRESSED WOUNDS.DR. GARRIDO PLANS TO TAKE PT TO OR TOMORROW AROUND 1500 FOR I&D.PT IS HEART HEALTHY DIET AND NPO @ MIDNIGHT FOR SURGERY TOMORROW.HOURLY ROUNDING COMPLETED FOR PT SAFETY.CALL LIGHT AND FALL PRECATUIONS IN PLACE.WILL CONTINUE TO MONITOR FOR DURATION OF SHIFT.
[2018-04-11 19:40] VITALS: BP 122/44
[2018-04-12] VITALS (7 sets, daily range): BP systolic 95–146; BP diastolic 39–72
--- NOTE | 2018-04-12 05:49 | NUR ---
A&O X4, PT ANXIOUS AT TIMES, PT COMPLAINED OF SOA, O2 INCREASED HOB ELVATED RELIEF NOTED. SR - ST AND BIGEMINY AT 0000 ON THE MONITOR. 4L O2 NC. PT SCHEDULED FOR D&I FOR TODAY, HAS BEEN NPO SINCE 0000. SEE MAR. SEE CHARTING. LISINOPRIL HELD, NURSING JUDGMENT BP LOW. FALL PRECAUTIONS IN PLACE. HOURLY ROUNDING FOR SAFETY.
--- NOTE | 2018-04-12 10:57 | EKG ---
[place] [address] ELECTROCARDIOGRAM REPORT Name: DMITRY RANDOLPH Room: [address] ADM IN M.R.#: [id number] Admission: 04/05/18 Attend Phys: Tawana Mcpherson Discharge: Date of : 37 Report #: [id number] THIS REPORT FOR: //name// [facility] Test Date: 2018-04-12 Test Time: 07:50:53 Pat Name: DMITRY RANDOLPH Department: Room: [address] Gender: F Auto Body Painter: BS : 1935 Requested By: Tereso Lima Order Number: [id number] Jean Carlos MD: Tereso Lima Measurements Intervals [place] Rate: 79 P: 77 MI: 161 QRS: 62 QRSD: 91 T: 61 QT: 371 QTc: 426 Interpretive Statements Sinus rhythm Compared to ECG 04/10/2018 01:56:43 Atrial fibrillation no longer present Electronically Signed On 04-12-2018 10:57:01 CDT by Tereso Lima [email or web address] <ELECTRONICALLY SIGNED> By: Tereso Lima MD, [facility] 04/12/18 1057 0750 0750 Tereso Lima MD, FACC /EPI
--- NOTE | 2018-04-12 11:22 | NUR ---
RECEIVED REPORT FROM WILL AND ASSUMED CARE OF PT @ 2241.PT IS A/O X4 BUT FORGETFUL.VSS,TRACING SR ON THE MONITOR.LUNG SOUNDS ARE CLEAR DIMINSHED.LAST BM WAS TODAY.IV LEFT FOREARM PATENT AND SALINE LOCKED.PT IS CALM AND COOPERATIVE BUT WANTING THE STAFF TO DO EVERYTHING FOR HER.GOAL FOR THE DAY IS TO BE UP IN THE CHAIR AT LEAST TWICE.PT DENIES PAIN UNLESS MESSING WITH RIGHT FOOT.PT IS UP WITH TWO ASSIST TO BSC AND CHAIR.PT LEFT RESTING IN BED WITH CALL LIGHT AND FALL PRECAUTIONS IN PLACE.WILL CONTINUE TO MONITOR.PT REMAINS IN NPO STATUS FOR SURGERY @ 1500.
--- NOTE | 2018-04-12 17:33 | NUR ---
VSS,CARDIAC MONITORING IN PLACE WITH NO CHANGES THIS SHIFT.PT IS NOW ON ROOM AIR WITH O2 SAT @ 95%.PT HAD I&D OF RIGHT FOOT WOUND WITH NO COMPLICATIONS.IV LEFT FOREARM PATENT AND SALINE LOCKED.MEDICATIONS GIVEN FOR PAIN AFTER PT RETURNED.HOURLY ROUNDING COMPLETED FOR PT SAFETY.ISOLATION MAINTAINED.CALL LIGHT AND FALL PRECATUIONS IN PLACE.WILL CONTINUE TO MONITOR FOR DURATION OF SHIFT.
[2018-04-13] VITALS: BP 117/46
[2018-04-13 04:00] VITALS: BP 106/60
[2018-04-13 04:45] LABS: HEMATOCRIT 24.7 % (37.0-47.0); HEMOGLOBIN 8.1 gm/dL (12.0-15.0); MCH 26.8 pg (26.0-34.0); MCHC 32.6 g/dL (28.0-37.0); MCV 82.2 fL (80.0-100.0); MPV 8.1 fl. (7.2-11.1); NUCLEATED RBCS 0 /100WBC; PLATELET COUNT* 370 thou/uL (150-400); RDW-CV 16.7 % (10.5-14.5); WBC 12.2 thou/uL (4.0-11.0)
[2018-04-13 05:13] LABS: CALCIUM 7.6 mg/dL (8.5-10.1); CREATININE 1.4 mg/dL (0.6-1.3); POTASSIUM 4.6 mmol/L (3.5-5.1)
--- NOTE | 2018-04-13 05:15 | NUR ---
ASSUMED CARE AROUND 1930. PT A/OX4, MORE FORGETFUL THE NIGHT WENT ON. PT DID NOT REST WELL TONIGHT, ENCOURAGED HER TO TURN OFF LIGHTS TO HELP. TELE MONITOR TRACING SR. BP DOWN AT START OF SHIFT, DR MARRUFO NOTIFIED, 500 ML NS GIVEN AND BP STABLE. ON 2L NC. VOIDING PER BEDPAN, NO BM THIS SHIFT. IV SALINE LOCKED. DENIES ANY PAIN. RIGHT FOOT DRSG C/D/I, PRAFO BOOT PLACED. REPOSITIONED DURING NIGHT. ISOLATION PRECAUTIONS IN PLACE. CALL LIGHT IN REACH, BEDALARM IN PLACE, WILL CONTINUE WITH PLAN OF CARE.
[2018-04-13 06:06] LABS: ABSOLUTE BASOPHILS 0.1 thou/uL (0.0-0.2); ABSOLUTE LYMPHOCYTES 0.6 thou/uL (0.8-5.3); ABSOLUTE MONOCYTES 0.5 thou/uL (0.0-1.2)
[2018-04-13 06:07] LABS: PLATELET ESTIMATE ADEQUATE; POLYCHROMASIA 1+
[2018-04-13 06:47] LABS: ESR (SEDRATE) 106 mm/hr (0-30)
[2018-04-13 08:19] VITALS: BP 114/48
[2018-04-13 11:56] VITALS: BP 95/32
--- NOTE | 2018-04-13 13:04 | NUR ---
WOUND CARE NOTE: REASSESSMENT OF RIGHT LATERAL MALLEOLUS. PATIENT IS POST OP DAY 1 FROM AND I&D. AUTO BODY DETAILER IN ROOM TOO. LARGE AMOUNT OF YELLOW DRAINAGE NOTED ON OLD DRESSING. WOUND NOW MEASURES 2.5X2.2X2.8. ANDRZEJ-WOUND WITH INFLAMMATION, PATIENT STATES WOUND IS FEELING MUCH BETTER THAN YESTERDAY. WOUND BED IS RED, MOIST, WITH TENDON AND SUBQ TISSUE VISIBLE. WOUND WAS CLEANSED WITH WOUND CLEANSER, PATTED DRY. PACKED WITH AQUACEL AG AND COVERED WITH 4X4. SECURED WITH KERLIX THEN JUSTO. APPLIED PODUS BOOT. PATIENT HAD SIGNIFICANT PAIN AFTER CLEANSING AND REPACKING OF WOUND. NOTIFIED PATIENT'S RN AND PAIN MEDICATION WAS GIVEN. RECOMMEND PODUS BOOT TO RIGHT FOOT WHEN IN BED ENCOURAGE GOOD NUTRITION AND HYDRATION FOR WOUND HEALING FOLLOW UP IN THE WOUND CENTER UPON DISCAHRGE
--- NOTE | 2018-04-13 13:08 | NUR ---
Nutrition: Pt seen for LOS. SLY Chappell in room at time of visit. Pt admitted with foot ulcer. H/o HTN, CKD, afib. Alb 1, prealb 8.6, BNP 6548, BG ok. +BM yday. Weight disparities in [facility]: 145#, 136#. Reweighed pt today - 120#. Heart Healthy diet. Pt stated she has an appetite and is eating fine. Would benefit from protein supplement and MVI for wound healing. Mild risk. Increased nutrient needs R/T wound healing AEB wound, depleted protein stores. RD will order Manuel (Arginaid) packets for wound healing. Recommend MVI use.
[2018-04-13 16:20] VITALS: BP 131/44
--- NOTE | 2018-04-13 17:56 | NUR ---
ASSUMED CARE OF PT AT 0730. PT CONTINUES TO BE ALERT AND ORIENTED TO SELF AND PLACE. PT IS FORGETFUL AND CONFUSED ON TIME AND SITUATION. PT VSS AND TRACING SR ON THE MONITOR. PT HAD C/O PAIN IN HER RIGHT ANKLE AFTER HER DRESSING CHANGE THIS MORNING AND WAS GIVEN HER PRN ACETOMENOPHEN THAT EFFECTIVELY REDUCED HER PAIN TO A TOLERABLE LEVEL. PT HAS BEEN EATING AROUND 50% OF HER MEALS TODAY AND THIS NURSE HAS BEEN OFFERING HIG PROTIEN AND HIGH CALORIE SNACKS BETWEEN MEALS. PT UP TO THE BEDSIDE COMMODE WITH 1 ASSIST ONCE TODAY AND USED THE BED BROWN ALL OTHER TIMES. PT HAD 2 SOFT UNFORMED BM'S TODAY. PT CURENTLY RESTING IN BED WATCHING TV WITH DAUGHTER AT BEDSIDE. NURSING WILL CONTINUE TO MONNITOR FOR SAFTEY AND COMFORT.
[2018-04-13 20:00] VITALS: BP 120/48
[2018-04-14] VITALS: BP 129/53
[2018-04-14 04:00] VITALS: BP 124/49
--- NOTE | 2018-04-14 05:28 | NUR ---
PT IS ABLE TO COMMUNICATE HER NEEDS TO STAFF WITH MINOR DIFFICULTY; SHE IS [id number] AND FORGETFUL AT TIMES. CURRENT PAIN MEDICATION REGIMEN HAS BEEN ADEQUATE FOR CONTROLLING HER PAIN UP TO THIS TIME. PATIENT USES CALL LIGHT FREQUENTLY. CONTACT ISOLATION MAINTAINED.
--- NOTE | 2018-04-14 07:15 | NUR ---
CHANGE OF SHIFT BEDSIDE REPORT GIVEN PATIENT SEEN AT BEDSIDE ASLEEP IN BED ASSUMED PATIENT CARE
[2018-04-14 08:00] VITALS: BP 147/48
[2018-04-14 12:00] VITALS: BP 126/84
[2018-04-14 16:00] VITALS: BP 129/58
[2018-04-14 20:09] VITALS: BP 119/50
[2018-04-15] VITALS: BP 127/89
[2018-04-15 04:00] VITALS: BP 130/71
--- NOTE | 2018-04-15 06:05 | NUR ---
PT IS ABLE TO COMMUNICATE HER NEEDS TO STAFF EFFECTIVELY. SHE HAS DENIED THE NEED FOR PRN PAIN MEDICATION UP TO THIS TIME. RIGHT FOOT MAY BE LEFT OUT OF SUPPORT BOOT WHILE PT IS IN BED AND SHE HAS NOT BEEN UP SO FAR THIS SHIFT. CONTACT ISOLATION FOR MRSA IN HER FOOT WOUND HAS BEEN MAINTAINED.
--- NOTE | 2018-04-15 07:15 | NUR ---
CHANGE OF SHIFT BEDSIDE REPORT GIVEN PATIENT SEEN AT BEDSIDE, ASLEEP ASSUMED PATIENT CARE
[2018-04-15 08:00] VITALS: BP 107/46
[2018-04-15 11:37] VITALS: BP 126/48
[2018-04-15 15:25] VITALS: BP 117/47
[2018-04-15 20:06] VITALS: BP 106/47
[2018-04-16] VITALS: BP 108/42
[2018-04-16 04:00] VITALS: BP 132/40
--- NOTE | 2018-04-16 06:35 | NUR ---
PT IS ABLE TO COMMUNICATE HER NEEDS TO STAFF EFFECTIVELY. SHE HAS DENIED THE NEED FOR PAIN MEDICATION UP TO THIS TIME. PT USES CALL LIGHT FREQUENTLY. CONTACT ISOLATION MAINTAINED. RIGHT FOOT ELEVATED OVERNIGHT.
[2018-04-16 09:15] VITALS: BP 140/49
--- NOTE | 2018-04-16 09:24 | NUR ---
Spoke with Pt regarding disposition, Pt in agreement with [facility] [place]. CM asked nurse to order PT/OT evals. Faxed initial referral to Roberta at [facility] per Pt's request. Pt stated that prior to this hospital stay, she was able to ambulate with her walker and complete her IADLS. Grandson completed majority of ADLs. CM will fax therapy evals once available.
[2018-04-16 11:30] VITALS: BP 134/66
[2018-04-16 16:00] VITALS: BP 121/70
[2018-04-16 19:45] VITALS: BP 110/46
--- NOTE | 2018-04-16 20:30 | NUR ---
ASSUMED PT CAREAT [id number], FULL ASSESMENT DONE CHARTED. PT A/O X3, VSS, SR/AFIB ON THE MONITOR THROUGH THE SHIFT. PT UP TO CHAIR WITH PT, VERY WEAK, VERY DEPENDENT ON STAFF FOR ASSISTANCE. USES CALL LIGHT FREQUENTLY. TURNED Q 2 HR. HAD MULTIPLE LOOSE STOOLS, CDIFF SAMPLE SENT TO LAB.
[2018-04-17] VITALS: BP 132/89
--- NOTE | 2018-04-17 03:12 | NUR ---
RECEIVED REPORT AND ASSUMED CARE AT 1900. VSS. CARDIAC MONITORING IN PLACE. PT DENIES ANY COMPLAINTS OF PAIN. ASSESMENT COMPLETED CHARTED. DISCUSSED PLAN OF CARE WITH PT. MEDICATIONS ADMINISTERED PER JAN. PT ON 2L. PT UP WITH MAX ASSIST. HOURLY ROUNDING COMPLETED, ALL NEEDS MET.BED IN LOWEST POSITION, CALL LIGHT WITHIN REACH, BED ALARM ON. WILL CONTINUE TO MONITOR FOR REMAINDER OF THE SHIFT
[2018-04-17 04:00] VITALS: BP 115/45
[2018-04-17 09:30] VITALS: BP 107/37
--- NOTE | 2018-04-17 09:31 | NUR ---
Faxed therapy notes to [facility] and asked that they initiate ins auth. Pt ready to dc today, once auth obtained.
[2018-04-17 11:30] VITALS: BP 115/49
--- NOTE | 2018-04-17 12:19 | NUR ---
[facility] received insurance auth, updated Dr, anticipate Pt dc today, waiting for orders. CM will fax once available. Chart copied. Nurse report number provided, . Updated Pt's dtr. Facility will pear picker around 4pm
[2018-04-17] MEDS ORDERED: HYDROCODON-ACE1 EAC7 PO ×2 (12:52→12:58)
[2018-04-17] MEDS ORDERED: PROPAFENONE 15150 MG PO (13:21)
[2018-04-17] MEDS ORDERED: ACETAMINOPHEN500 M1 PO (13:25)
[2018-04-17] MEDS ORDERED: ASPIRIN325 PO (13:29)
[2018-04-17] MEDS ORDERED: AUGMENTIN 875-1 EACH PO (13:33)
[2018-04-17] MEDS ORDERED: CYCLOBENZAPRINE5 MG PO (13:36)
[2018-04-17] MEDS ORDERED: PROTONIX40 M1 PO (13:40)
[2018-04-17 13:45] VITALS: BP 145/60
--- NOTE | 2018-04-17 14:14 | NUR ---
ASSUMED PT CARE AT 0730, FULL ASSESMENT DONE CHARTED. PT A/O X4, APPEARS IN [facility] [employer].VSS, SR ON THE MONITOR. PT DENIES PAIN, UP TO CHAIR THIS AM WITH OT, WORKED WITH PT THIS AFTERNOON. DR ROCHA CHANGED DRESSING TO RIGHT FOOT. DISCHARGE PICTURES TAKEN. RECIEVED ORDERS FOR PT TO DISCHARGE TO [facility]. AUTO LOCATOR TIME SET FOR 1600. WILL CONTINUE TO MONITOR.
--- NOTE | 2018-04-18 14:08 | OP ---
[facility] [address] [place] [address] OPERATIVE REPORT Name: DMITRY RANDOLPH Room: [address] IN M.R.#: [id number] Admission: 04/05/18 Attend Phys: Tawana Mcpherson Discharge: 04/17/18 Date of : 37 Report #: [id number] THIS REPORT FOR: //name// CC: Ronny Loyd DATE OF SERVICE: 04/12/2018 SURGEON: Jorge Plummer DPM PREOPERATIVE DIAGNOSIS: Deep tissue infection with abscess, right lateral ankle. POSTOPERATIVE DIAGNOSIS: Deep tissue infection with abscess, right lateral ankle. PROCEDURES: 1. Incision and drainage, right lateral ankle. 2. Excision, soft tissue mass, ankle. ANESTHESIA: MAC. INJECTABLES: 30 mL of a 1:1 mixture of 0.5% Marcaine plain and 1% lidocaine plain preoperatively, and 20 mL of 0.5% Marcaine plain intraoperatively. TOURNIQUETS: None. SUTURES: None. CULTURES: 1. Soft tissue, lateral ankle, aerobic and anaerobic. 2. Aerobic and anaerobic swab cultures. ESTIMATED BLOOD LOSS: Roughly 10 mL. COMPLICATIONS: None. DESCRIPTION OF PROCEDURE: The patient was brought to the OR and placed on the table supine with induction of MAC anesthesia. A local field block was given circumferentially around the right ankle wound. The extremity was prepped and draped aseptically. Anesthesia was checked and found to be adequate. A #10 surgical blade was used to create a circumferential incision around the lateral ankle ulcer and lesion. The ulceration and infected tissue were excised full thickness down from the subcutaneous tissue layer and a specimen was sent for aerobic and anaerobic soft tissue cultures. Bleeding was stopped with electrocautery and pressure. A curved [place] [address] OPERATIVE REPORT Name: DMITRY RANDOLPH Room: [address]#: [id number] Admission: 04/05/18 Attend Phys: Tawana Mcpherson Discharge: 04/17/18 Date of : 37 Report #: [id number] the wound and blunt probing was carried out in the surgical wound and purulence was expressed from both the proximal aspect of the ankle along the peroneal tendon region as well as distally towards the fifth metatarsal region. The wound was flushed with sterile saline and dried. The wound was then packed with Aquacel Ag and covered with fluffs, ABDs, Kerlix, and Roderick bandage. The patient left the OR alert and oriented with no pain or complications noted. I did take aerobic and anaerobic swab cultures of the intraoperative purulence. <ELECTRONICALLY SIGNED> By: Jorge Plummer DPM 04/18/18 1408 0722 [id number] Plummer DPM /rosa
--- NOTE | 2018-04-18 14:08 | CON ---
[facility] [address] [place] [address] CONSULTATION Name: DMITRY RANDOLPH Room: [address] IN M.R.#: [id number] Admission: 04/05/18 Attend Phys: Tawana Mcpherson Discharge: 04/17/18 Date of : 37 Report #: [id number] THIS REPORT FOR: //name// CC: Ronny Loyd DATE OF SERVICE: 04/17/2018 CHIEF COMPLAINT: Status post incision and drainage, right lateral ankle abscess with deep tissue infection. She has done well, has not required pain medications for over 24 hours. She denies pain to the right lower extremity, she has good appetite. She has remained afebrile with stable vitals. Surgical cultures have not grown any organisms, although preoperative wound swab did grow sensitive Staph aureus. She is on parenteral Unasyn with good tolerance. There are no new labs for review. PHYSICAL EXAMINATION: The inflammation has decreased since yesterday, with no johnathan cellulitis. There is no pain or tenderness with palpation along the right lower leg or periwound. There is increased red granulation to the lateral ankle wound bed with a pale film of overlying slough. There is no tunneling, fluctuance or crepitation, no expressible drainage. No exposed bone or tendon. The plantar foot wound over the cuboid is nearly healed, and is without inflammation. No signs of acute vascular embarrassment. PLAN: Her wounds were cleansed and I packed the lateral wound with Aquacel Ag in place, the same over the plantar wound. The foot was wrapped with ABDs, Kerlix and Roderick bandage. The patient may ambulate on the foot and her pedorthic shoe with therapy as tolerated. <ELECTRONICALLY SIGNED> By: Jorge Plummer DPM 04/18/18 1408 1245 0149Jorge Plummer DPM /nt
--- NOTE | 2018-04-18 14:08 | CON ---
[facility] [address] [place] [address] CONSULTATION Name: DMITRY RANDOLPH Room: [address] IN M.R.#: [id number] Admission: 04/05/18 Attend Phys: Tawana Mcpherson Discharge: 04/17/18 Date of : 37 Report #: [id number] THIS REPORT FOR: //name// CC: Ronny Eubanks Quincy Loyd DATE OF SERVICE: 04/16/2018 CHIEF COMPLAINT: Status post incision and drainage, right lateral ankle wound with deep tissue infection. Surgical cultures have no growth. She is on parenteral Unasyn with good tolerance. She has been afebrile with decreased pain, likely discharged to a snf facility. No new labs for review. PHYSICAL EXAMINATION: Decreased inflammation, edema and pain to the right lateral ankle wound with increased granulation of the wound bed. There is red granulation with overlying yellowish slough. The plantar wound over the cuboid is also smaller with no inflammation, no signs of acute vascular embarrassment noted. Overall, significantly clinically improved since surgery. PLAN: Daily dressing change with Aquacel Ag, ABDs, Kerlix, and Roderick to the right foot and off load in a PRAFO boot. The patient may bear weight to the extremity for transfers and short distances in a surgical shoe with physical therapy assistance. I will follow up with her next week at [facility]. <ELECTRONICALLY SIGNED> By: Jorge Plummer DPM 04/18/18 1408 1253 1835Jorge Plummer DPM /nt
--- NOTE | 2018-04-18 14:08 | CON ---
[facility] [address] [place] [address] CONSULTATION Name: DMITRY RANDOLPH Room: [address] IN M.R.#: [id number] Admission: 04/05/18 Attend Phys: Tawana Mcpherson Discharge: 04/17/18 Date of : 37 Report #: [id number] THIS REPORT FOR: //name// CC: Ronny Loyd DATE OF SERVICE: 04/15/2018 CHIEF COMPLAINT: Status post incision and drainage, right lateral ankle abscess with deep tissue infection. She is on parenteral Unasyn with good tolerance. Surgical tissue and swab cultures have no growth thus far. Admission cultures grew methicillin sensitive Staph aureus. She is more comfortable and less agitated today, she is tolerating the hydrocodone well. She has a stable appetite, she has remained afebrile. There are no new labs for review. PHYSICAL EXAMINATION: Substantial decrease in inflammation and edema to the right lateral ankle. The surgical wound that is filling in with granulation tissue with less pale slough. There is no exposed bone or tendon. There is no underlying fluctuance or crepitation. There is no expressible fluid or purulence. The inflammation to the periwound is low grade at this point. The plantar ulceration overlying the cuboid is nearly healed without inflammation. The foot is warm with no pallor, cyanosis or signs of acute vascular embarrassment. She does have palpable dorsalis pedis and posterior tibial pulses to the right extremity. She has a stable right Charcot foot deformity with rocker bottom cuboid impression, status post incision and drainage, right lateral ankle, peripheral neuropathy. PLAN: The wound was cleansed with wound cleanser and dried. It was packed with Aquacel AG as well as the plantar forefoot as well as the plantar cuboid ulcer. The foot was dressed with ABDs and Kerlix gauze. May consider wound vacuum in the future pending the clinical progression of the wound. It may be in her best interest at this point is to continue open packing. I will follow up with her at [facility] next week. We will continue to see her daily during her hospitalization. <ELECTRONICALLY SIGNED> By: Jorge Plummer DPM 04/18/18 1408 1559 2206Jorge Plummer DPM /rosa
--- NOTE | 2018-04-18 14:08 | CON ---
[facility] [address] [place] [address] CONSULTATION Name: DMITRY RANDOLPH Room: [address] IN M.R.#: [id number] Admission: 04/05/18 Attend Phys: Tawana Mcpherson Discharge: 04/17/18 Date of : 37 Report #: [id number] THIS REPORT FOR: //name// CC: Ronny Loyd DATE OF SERVICE: 04/13/2018 CHIEF COMPLAINT: Status post incision and drainage of right lateral ankle with wound debridement, postoperative day 1. She relates a significant decrease in pain to the extremity. She has good appetite, she has been afebrile with stable vital signs. She remains nonweightbearing. She remains nonambulatory. Surgical cultures pending with no growth thus far. She is on parenteral Unasyn with good tolerance. LABORATORY DATA: WBC 12.2, RBC 3.0, hemoglobin 8.1, hematocrit 24.7 and platelets 370. BUN 33, creatinine 1.4 and glucose 113. PHYSICAL EXAMINATION: Postoperative wound has viable margins with no pallor, cyanosis or signs of acute vascular embarrassment. There is significant decrease in inflammation to the periwound and lower leg and the leg is much less painful to the touch than yesterday. No expressible purulence from the wound. The wound bed is mixture of subcutaneous fibrous tissue. There is no exposed bone, tendon or joint. No signs of acute vascular embarrassment. EXTREMITIES: Warm. No popliteal adenopathy. IMPRESSION: Status post incision and drainage with soft tissue debridement, right lateral ankle wound with deep tissue infection. PLAN: The wound was cleansed and redressed with Aquacel Ag and covered with ABDs, Kerlix and Roderick wrap. We will change the patient's dressing daily while hospitalized. <ELECTRONICALLY SIGNED> By: Jorge Plummer DPM 04/18/18 1408 1234 2052Djohn Plummer DPM /nt
--- NOTE | 2018-04-18 14:08 | CON ---
[address] [address] CONSULTATION Name: DMITRY RANDOLPH Room: [address] IN M.R.#: [id number] Admission: 04/05/18 Attend Phys: Tawana Mcpherson Discharge: 04/17/18 Date of : 37 Report #: [id number] THIS REPORT FOR: //name// CC: Ronny Eubanks DO Quincy Loyd DATE OF SERVICE: 04/10/2018 TYPE OF REPORT: Podiatry consultation. CHIEF COMPLAINT AND HISTORY OF PRESENT ILLNESS: An 82-year-old female with longstanding right Charcot arthropathy with ulceration to the plantar cuboid region since roughly September 2017. The patient was recently hospitalized and on parenteral antibiotics for worsening right foot infection with cellulitis. 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 She was previously on parenteral vancomycin. She is currently undergoing blood transfusion. Right foot culture from 04/05/2017 grew methicillin-sensitive Staph aureus. Blood cultures negative x 2. She has been afebrile with stable vitals. She relates pain to the right lateral fibula at an area of newer ulceration. Recent foot radiographs positive for Charcot arthropathy with no obvious findings for osteomyelitis. Of course, with osteolysis from Charcot, it is difficult to differentiate osteomyelitis from lysis and bone resorption. 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 LABORATORY DATA: WBC 17.2, RBC 2.64, hemoglobin 6.8, hematocrit 21.5 and platelets 268. BUN 44, creatinine 1.4 and glucose 98. Albumin 1.0. PHYSICAL EXAMINATION: Ulceration to the right plantar lateral hindfoot overlying the cuboid bone. The ulcer measures roughly 2.5 cm diameter and 0.4 cm deep. There is pale red granulation with no exposed bone, tendon or joint. There is macerated keratosis along the joint margin. There is no inflammation or cellulitis to the ashley-wound. I am unable to probe to bone and there is no fluctuance or crepitation to this area. She has typical findings of a midfoot Charcot collapse. She has a superficial ulceration to the right lateral subfibular region with localized inflammation and pain. The wound measures 0.6 x 0.6 x 0.2 cm. There is no expressible drainage or tunneling. I am unable to probe to bone, specifically the fibula. The foot is warm with palpable dorsalis pedis and posterior tibial pulses and no pallor or cyanosis noted. No signs of acute vascular embarrassment. IMPRESSION: Right Charcot foot arthropathy with chronic ulceration to the plantar cuboid and newer ulceration to the lateral malleolus. No radiographic evidence for definitive [place] [address] CONSULTATION Name: DMITRY RANDOLPH Room: [address] IN [facility].#: [id number] Admission: 04/05/18 Attend Phys: Tawana Mcpherson Discharge: 04/17/18 Date of : 37 Report #: [id number] PLAN: The wounds were cleansed and redressed with silver foam, ABDs, gauze and Roderick wrap. However, an MRI without contrast to compare to prior one. I am not recommending any surgical intervention at this point. I will debride her foot wounds tomorrow at bedside with a scalpel. I spoke with her daughter and she will bring in her offloading shoe for me to examine. We may be able to fabricate a custom-molded insert and different type of walking shoe for improved offloading. I favor a conservative, nonsurgical approach given her debility, age and lack of osteomyelitis. <ELECTRONICALLY SIGNED> By: Jorge Plummer DPM 04/18/18 1408 1254 2034Djohn Plummer DPM /nt
--- NOTE | 2018-04-18 14:08 | CON ---
[facility] [address] [place] [address] CONSULTATION Name: DMITRY RANDOLPH Room: [address] IN M.R.#: [id number] Admission: 04/05/18 Attend Phys: Tawana Mcpherson Discharge: 04/17/18 Date of : 37 Report #: [id number] THIS REPORT FOR: //name// CC: Ronny Loyd DATE OF SERVICE: 04/14/2018 CHIEF COMPLAINT: Status post incision and drainage right lateral ankle wound. Surgical tissue and swab cultures are pending with no growth so far. She is on parenteral Unasyn with good tolerance. She relates moderate pain to the extremity, especially after dressing changes. She is nonweightbearing and nonambulatory. She has a stable appetite. She denies fevers, chills or malaise. No new labs today for review. PHYSICAL EXAMINATION: Decreased inflammation and edema to the right lateral ankle wound at the surgical site. No active bleeding, no expressible drainage. The leg, ankle and wound are less painful with palpation. There is mixture of fibronecrotic tissue and slough to the wound bed with some granulation buds. No visible bone or tendon. The wound to the plantar foot is stable with no inflammation or cardinal signs of infection. She has a stable right Charcot foot deformity with a rocker-bottom cuboid subluxation. No signs of acute vascular embarrassment to either extremity. IMPRESSION: Status post incision and drainage right ankle with concomitant Charcot foot deformity, right plantar foot ulceration. PLAN: Excisional ulcer debridement of the lateral wound with scissors and forceps to remove subcutaneous tissue. Both wounds were cleansed and packed with Aquacel Ag and covered with ABDs, Kerlix gauze and offloaded on a pillow behind the ankle. I ordered a Sharples for additional pain relief. We will follow daily during her hospitalization. <ELECTRONICALLY SIGNED> By: Jorge Plummer DPM 04/18/18 1408 1251 1833Djohn Plummer DPM /rosa
== END 2018-04-17 16:06 | DRG 853 ==
LOC: M.ERS 09:41 → M.TBA-ER 11:16 → M.2W 11:16
PROVIDERS: Emergency Medicine Emergency Medical Services; Internal Medicine Cardiovascular Disease; Internal Medicine Infectious Disease; Nurse Practitioner Family; ADMIT Internal Medicine
PROC: 30233N1 Transfusion of Nonautologous Red Blood Cells into Peripheral Vein, Percutaneous Approach (ICD-10-PCS; principal; 2018-04-10)
PROC: 0J9Q0ZZ Drainage of Right Foot Subcutaneous Tissue and Fascia, Open Approach (ICD-10-PCS; 2018-04-12)
PROC: 0JBQ0ZZ Excision of Right Foot Subcutaneous Tissue and Fascia, Open Approach (ICD-10-PCS; 2018-04-12)
DX: A41.9 Sepsis, unspecified organism (principal); G93.40 Encephalopathy, unspecified; N17.9 Acute kidney failure, unspecified; L03.115 Cellulitis of right lower limb; L02.415 Cutaneous abscess of right lower limb; L97.419 Non-pressure chronic ulcer of right heel and midfoot with unspecified severity; I13.0 Hypertensive heart and chronic kidney disease with heart failure and stage 1 through stage 4 chronic kidney disease, or unspecified chronic kidney disease; E46 Unspecified protein-calorie malnutrition; I50.32 Chronic diastolic (congestive) heart failure; I48.91 Unspecified atrial fibrillation; D64.9 Anemia, unspecified; I87.8 Other specified disorders of veins; M14.671 Charcot's joint, right ankle and foot; N18.9 Chronic kidney disease, unspecified; E78.5 Hyperlipidemia, unspecified; I73.9 Peripheral vascular disease, unspecified; G62.9 Polyneuropathy, unspecified; K21.9 Gastro-esophageal reflux disease without esophagitis; B95.62 Methicillin resistant Staphylococcus aureus infection as the cause of diseases classified elsewhere; R09.02 Hypoxemia; M19.90 Unspecified osteoarthritis, unspecified site; E78.00 Pure hypercholesterolemia, unspecified; Z90.710 Acquired absence of both cervix and uterus; Z88.6 Allergy status to analgesic agent; Z88.1 Allergy status to other antibiotic agents; Z88.2 Allergy status to sulfonamides; Z88.8 Allergy status to other drugs, medicaments and biological substances; Z98.49 Cataract extraction status, unspecified eye; Z68.26 Body mass index [BMI] 26.0-26.9, adult; Z79.2 Long term (current) use of antibiotics; Z79.899 Other long term (current) drug therapy; Z83.3 Family history of diabetes mellitus

== ENCOUNTER → 2018-04-25 | Outpatient (CLI) | payer OTHER ==
[~2018-04-25] MED LIST changes: +ACETAMINOPHEN500 M1 PO; +ASPIRIN325 PO; +AUGMENTIN 875-1 EACH PO; +CYCLOBENZAPRINE5 MG PO; +HYDROCODON-ACE1 EAC7 PO; +PROPAFENONE 15150 MG PO; +PROTONIX40 M1 PO; +SSD CREAM 1% 5050 GM TOP
== END ==
LOC: M.WC 13:00
DX: T81.89XA Other complications of procedures, not elsewhere classified, initial encounter (principal); S90.521A Blister (nonthermal), right ankle, initial encounter; L89.892 Pressure ulcer of other site, stage 2; M14.671 Charcot's joint, right ankle and foot; M14.672 Charcot's joint, left ankle and foot; L84 Corns and callosities; E78.5 Hyperlipidemia, unspecified; I10 Essential (primary) hypertension; K21.9 Gastro-esophageal reflux disease without esophagitis; Z85.828 Personal history of other malignant neoplasm of skin; Z90.710 Acquired absence of both cervix and uterus; Z98.49 Cataract extraction status, unspecified eye; X58.XXXA Exposure to other specified factors, initial encounter; Y93.89 Activity, other specified; Y92.89 Other specified places as the place of occurrence of the external cause; Y99.8 Other external cause status; Y83.8 Other surgical procedures as the cause of abnormal reaction of the patient, or of later complication, without mention of misadventure at the time of the procedure

== ENCOUNTER → 2018-05-02 | Outpatient (CLI) | payer OTHER | LOC: M.WC 04:08 | DX: T81.89XD Other complications of procedures, not elsewhere classified, subsequent encounter (principal); S90.521D Blister (nonthermal), right ankle, subsequent encounter; E11.40 Type 2 diabetes mellitus with diabetic neuropathy, unspecified; E11.610 Type 2 diabetes mellitus with diabetic neuropathic arthropathy; E78.5 Hyperlipidemia, unspecified; I10 Essential (primary) hypertension; K21.9 Gastro-esophageal reflux disease without esophagitis; Z85.828 Personal history of other malignant neoplasm of skin; Z90.710 Acquired absence of both cervix and uterus; Z98.49 Cataract extraction status, unspecified eye; X58.XXXD Exposure to other specified factors, subsequent encounter; Y83.8 Other surgical procedures as the cause of abnormal reaction of the patient, or of later complication, without mention of misadventure at the time of the procedure ==

== ENCOUNTER 2018-05-07 01:49 | Emergency (ER) | payer OTHER ==
[~2018-05-07] VITALS: Ht 157.5 cm; Wt 62.6 kg
[2018-05-07 02:51] LABS: ABSOLUTE BASOPHILS 0.1 thou/uL (0.0-0.2); ABSOLUTE EOSINOPHILS 0.3 thou/uL (0.0-0.7); ABSOLUTE LYMPHOCYTES 1.2 thou/uL (0.8-5.3); ABSOLUTE MONOCYTES 0.7 thou/uL (0.0-1.2); ABSOLUTE NEUTROPHILS 6.6 thou/uL (1.6-8.1); BASOPHILS 1.1 %; EOSINOPHILS 3.8 %; HEMATOCRIT 24.7 % (37.0-47.0); LYMPHOCYTES 13.4 %; MCH 26.7 pg (26.0-34.0); MCHC 32.4 g/dL (28.0-37.0); MCV 82.3 fL (80.0-100.0); MPV 6.7 fl. (7.2-11.1); NUCLEATED RBCS 0 /100WBC; PLATELET COUNT* 546 thou/uL (150-400); POLYS 73.7 %; RBC 3.01 mil/uL (4.20-5.00); RDW-CV 18.4 % (10.5-14.5)
[2018-05-07 02:53] LABS: CALCIUM 8.3 mg/dL (8.5-10.1); CREATININE 0.8 mg/dL (0.6-1.3); POTASSIUM 3.7 mmol/L (3.5-5.1)
[2018-05-07 05:20] VITALS: BP 145/66
== END 2018-05-07 05:21 | disposition home or self-care (01) ==
LOC: M.ERS 01:49
PROVIDERS: Emergency Medicine
DX: M25.511 Pain in right shoulder (principal); M62.838 Other muscle spasm; I10 Essential (primary) hypertension; M19.90 Unspecified osteoarthritis, unspecified site; E78.00 Pure hypercholesterolemia, unspecified; Z90.710 Acquired absence of both cervix and uterus; Z86.14 Personal history of Methicillin resistant Staphylococcus aureus infection; Z88.8 Allergy status to other drugs, medicaments and biological substances; Z88.1 Allergy status to other antibiotic agents; Z88.2 Allergy status to sulfonamides; Z88.6 Allergy status to analgesic agent

== ENCOUNTER 2018-05-21 12:36 | Emergency (ER) | payer OTHER ==
[~2018-05-21] VITALS: Ht 157.5 cm; Wt 77.1 kg
[2018-05-21 13:20] LABS: ABSOLUTE BASOPHILS 0.1 thou/uL (0.0-0.2); ABSOLUTE EOSINOPHILS 0.3 thou/uL (0.0-0.7); ABSOLUTE LYMPHOCYTES 1.4 thou/uL (0.8-5.3); ABSOLUTE MONOCYTES 0.6 thou/uL (0.0-1.2); ABSOLUTE NEUTROPHILS 4.6 thou/uL (1.6-8.1); BASOPHILS 0.9 %; EOSINOPHILS 4.1 %; HEMATOCRIT 24.7 % (37.0-47.0); LYMPHOCYTES 20.1 %; MCH 26.2 pg (26.0-34.0); MCHC 32.3 g/dL (28.0-37.0); MCV 81.3 fL (80.0-100.0); MONOCYTES 8.2 %; MPV 6.5 fl. (7.2-11.1); NUCLEATED RBCS 0 /100WBC; PLATELET COUNT* 511 thou/uL (150-400); POLYS 66.7 %; RBC 3.04 mil/uL (4.20-5.00); RDW-CV 18.4 % (10.5-14.5); WBC 6.9 thou/uL (4.0-11.0)
[2018-05-21 13:33] LABS: CALCIUM 8.5 mg/dL (8.5-10.1); CREATININE 0.8 mg/dL (0.6-1.3); POTASSIUM 3.9 mmol/L (3.5-5.1)
[2018-05-21 13:38] LABS: ALBUMIN 2.2 g/dL (3.4-5.0); TOTAL BILIRUBIN 0.2 mg/dL (<0.1-1.0); TOTAL PROTEIN 7.2 g/dL (6.4-8.2)
[2018-05-21] MEDS ORDERED: AUGMENTIN 875-1 EACH PO (15:45)
[2018-05-21 15:56] VITALS: BP 157/76
== END 2018-05-21 15:59 | disposition home or self-care (01) ==
LOC: M.ERS 12:36
PROVIDERS: Emergency Medicine Emergency Medical Services
DX: L03.116 Cellulitis of left lower limb (principal); I10 Essential (primary) hypertension; M19.90 Unspecified osteoarthritis, unspecified site; E78.00 Pure hypercholesterolemia, unspecified; Z86.14 Personal history of Methicillin resistant Staphylococcus aureus infection; Z88.8 Allergy status to other drugs, medicaments and biological substances; Z88.1 Allergy status to other antibiotic agents; Z88.2 Allergy status to sulfonamides; Z88.6 Allergy status to analgesic agent

== ENCOUNTER 2018-11-30 13:03 | Observation (INO) | payer OTHER ==
[~2018-11-30] VITALS: Ht 157.5 cm; Wt 64.0 kg
[2018-11-30 13:07] VITALS: BP 146/74
[2018-11-30] MEDS ORDERED: CALCIUM 500 +1 EAC5 PO (13:10)
[2018-11-30 13:49] LABS: ABSOLUTE BASOPHILS 0.1 thou/uL (0.0-0.2); ABSOLUTE EOSINOPHILS 0.4 thou/uL (0.0-0.7); ABSOLUTE LYMPHOCYTES 1.5 thou/uL (0.8-5.3); ABSOLUTE MONOCYTES 0.8 thou/uL (0.0-1.2); ABSOLUTE NEUTROPHILS 7.5 thou/uL (1.6-8.1); BASOPHILS 1.1 %; EOSINOPHILS 3.5 %; HEMATOCRIT 32.1 % (37.0-47.0); HEMOGLOBIN 10.5 gm/dL (12.0-15.0); LYMPHOCYTES 14.3 %; MCH 27.6 pg (26.0-34.0); MCHC 32.8 g/dL (28.0-37.0); MCV 84.1 fL (80.0-100.0); MONOCYTES 7.5 %; MPV 6.6 fl. (7.2-11.1); NUCLEATED RBCS 0 /100WBC; PLATELET COUNT* 473 thou/uL (150-400); POLYS 73.6 %; RBC 3.81 mil/uL (4.20-5.00); WBC 10.2 thou/uL (4.0-11.0)
[2018-11-30 14:00] LABS: APTT 26.7 Seconds (25.0-31.3); CALCIUM 9.1 mg/dL (8.5-10.1); CREATININE 1.1 mg/dL (0.6-1.3); POTASSIUM 4.4 mmol/L (3.5-5.1); PROTIME 10.2 Seconds (9.20-11.50)
[2018-11-30 14:05] LABS: ALBUMIN 3.1 g/dL (3.4-5.0); TOTAL BILIRUBIN 0.5 mg/dL (<0.1-1.0); TOTAL PROTEIN 7.1 g/dL (6.4-8.2)
[2018-11-30 14:54] LABS: URINE BILIRUBIN NEGATIVE (Negative); URINE BLOOD NEGATIVE (Negative); URINE CLARITY CLEAR; URINE COLOR YELLOW; URINE GLUCOSE-RANDOM NEGATIVE (Negative); URINE KETONES NEGATIVE (Negative); URINE LEUKOCYTES-REFLEX NEGATIVE (Negative); URINE NITRITE-REFLEX NEGATIVE (Negative); URINE PROTEIN NEGATIVE (Negative)
[2018-11-30 16:00] LABS: INFLUENZA A ANTIGEN None Detected (None Detect); INFLUENZA B ANTIGEN None Detected (None Detect)
[2018-11-30 16:15] VITALS: BP 131/65
[2018-11-30 16:30] VITALS: BP 124/54
[2018-11-30] MEDS ORDERED: VOLTAREN50 MG PO (17:09)
[2018-11-30] MEDS ORDERED: IRON325 PO (17:09)
[2018-11-30] MEDS ORDERED: POTASSIUM20 PO (17:10)
[2018-11-30] MEDS ORDERED: VITAMIN B-12500 MCG PO (17:11)
[2018-11-30] MEDS ORDERED: COLACE100 MG PO (17:12)
--- NOTE | 2018-11-30 18:42 | NUR ---
PATIENT ARRIVED FROM ER THIS EVENING. PATIENT SETTLED TO ROOM. HISTORY, ASSESSMENT AND VITALS COMPLETED AND DOCUMENTED. PATIENT HAS COMPLAINTS OF PAIN TO RIGHT FOOT AND BACK, TREATED ADEQUATELY WITH MEDICATION AND POSITIONING. PATIENT HAS GOOD APPETITE, NEEDS ASSISTANCE WITH EATING. PATIENT IS ALERT AND ORIENTED. PATIENT HAS CALL LIGHT WITHIN REACH. DENIES ANY NEEDS AT THIS TIME. WILL CONTINUE TO MONITOR.
[2018-11-30 20:00] VITALS: BP 105/50
[2018-12-01 04:08] LABS: ABSOLUTE BASOPHILS 0.1 thou/uL (0.0-0.2); ABSOLUTE EOSINOPHILS 0.4 thou/uL (0.0-0.7); ABSOLUTE LYMPHOCYTES 1.7 thou/uL (0.8-5.3); ABSOLUTE MONOCYTES 0.6 thou/uL (0.0-1.2); ABSOLUTE NEUTROPHILS 5.4 thou/uL (1.6-8.1); EOSINOPHILS 4.8 %; HEMATOCRIT 26.3 % (37.0-47.0); HEMOGLOBIN 8.6 gm/dL (12.0-15.0); MCH 27.9 pg (26.0-34.0); MCHC 32.7 g/dL (28.0-37.0); MCV 85.3 fL (80.0-100.0); MONOCYTES 6.9 %; MPV 7.6 fl. (7.2-11.1); NUCLEATED RBCS 0 /100WBC; POLYS 66.3 %; RBC 3.08 mil/uL (4.20-5.00); RDW-CV 15.3 % (10.5-14.5); WBC 8.1 thou/uL (4.0-11.0)
[2018-12-01 04:13] LABS: PLATELET COUNT* 373 thou/uL (150-400)
[2018-12-01 04:17] LABS: CALCIUM 8.2 mg/dL (8.5-10.1); POTASSIUM 4.2 mmol/L (3.5-5.1)
--- NOTE | 2018-12-01 06:55 | NUR ---
PT SLEPT MOST OF SHIFT. ASSESSMENT DOCUMENTED. MEDS GIVEN PER E-MAR. NEW IV STARTED THIS SHIFT. PAIN MEDS GIVEN PER E-MAR WITH RELIEF. PT REPOSITIONED THROUGH NIGHT. PT INCONTINENT THORUGH NIGHT. WILL CONTINUE WITH PLAN OF CARE.
[2018-12-01 08:00] VITALS: BP 131/56
[2018-12-01 10:57] VITALS: BP 131/56
--- NOTE | 2018-12-02 12:25 | EKG ---
[place] [address] ELECTROCARDIOGRAM REPORT Name: DMITRY RANDOLPH Room: [address] M.R.#: [id number] Admission: 11/30/18 Attend Phys: Ty Celestin MD Discharge: 12/01/18 Date of : 37 Report #: [id number] THIS REPORT FOR: //name// [facility] ED Test Date: 2018-11-30 Test Time: 14:41:31 Pat Name: DMITRY RANDOLPH Department: Room: [facility] Gender: F Financial Foundations Representative: Helene GELLER : 1935 Requested By: Kyrie Verduzco Order Number: [id number] MD: Soy Riley Measurements Intervals [place] Rate: 96 P: 84 [place]: 186 QRS: 49 QRSD: 88 T: -13 QT: 324 QTc: 410 Interpretive Statements Sinus rhythm Consider left ventricular hypertrophy Borderline T abnormalities, inferior leads Compared to ECG 04/12/2018 07:50:53 T-wave abnormality now present Electronically Signed On 12-02-2018 12:25:22 INDUSTRIAL TECHNOLOGIST by Soy Riley [email or web address] <ELECTRONICALLY SIGNED> By: Soy Riley MD, FACC 12/02/18 1225 1441 1441 Soy Riley MD, [facility] /EPI
== END 2018-12-01 12:05 | disposition home or self-care (01) ==
LOC: M.ERS 13:03 → M.3W 15:08 → M.TBA-ER 15:08 → M.3W 16:32
PROVIDERS: Nurse Practitioner Family; ADMIT Internal Medicine
DX: R53.1 Weakness (principal); A52.16 Charcot's arthropathy (tabetic); E86.0 Dehydration; M19.019 Primary osteoarthritis, unspecified shoulder; I10 Essential (primary) hypertension; E78.00 Pure hypercholesterolemia, unspecified; R29.6 Repeated falls; Z79.899 Other long term (current) drug therapy

== ENCOUNTER 2018-12-09 18:50 | Inpatient (IN) | payer OTHER ==
[~2018-12-09] VITALS: Ht 157.5 cm; Wt 60.4 kg
--- NOTE | ~2018-12-09 | CON ---
[address] [address] CONSULTATION Name: DMITRY RANDOLPH Room: [address] IN M.R.#: [id number] Admission: 12/09/18 Attend Phys: Sathya Cabrera MD Discharge: Date of : 36 Report #: [id number] THIS REPORT FOR: //name// CC: Sathya Eubanks DATE OF SERVICE: 12/10/2018 HISTORY OF PRESENT ILLNESS: This is a pleasant 83-year-old female, with past medical history significant for atrial fibrillation, arthritis, hypertension, hyperlipidemia, chronic kidney disease, who is presenting for evaluation of left lower extremity pain. The patient reports the pain started a few days back and since then, has been unrelenting. She initially presented to the hospital a couple of days back when she was discharged from the ER and she returned for continued pain. The GI service has been consulted for evaluation of iron deficiency anemia. The patient denies any abdominal pain, nausea, vomiting, diarrhea, hematemesis, hematochezia or weight loss. The patient reports she had a colonoscopy more than 10 years back and has never had an EGD in the past. PAST MEDICAL HISTORY: As mentioned above, the patient has a history of atrial fibrillation, hypertension, hyperlipidemia and CKD. PAST SURGICAL HISTORY: The patient denies history of hysterectomy, left shoulder dislocation. SOCIAL HISTORY: The patient denies smoking, alcohol or recreational drug use. FAMILY HISTORY: There is no significant family history of colorectal or gastric cancer. REVIEW OF SYSTEMS: Comprehensive 10-point review of systems is negative except for what is mentioned in the HPI. PHYSICAL EXAMINATION: VITAL SIGNS: Temperature 36.3, blood pressure 141/72, pulse rate 95, oxygen saturation 98% on room air. GENERAL: The patient is alert, awake, oriented x 3, appears to be in distress from chronic leg pain. HEENT: Pupils are equal, round, reactive to light and accommodation. Mucous membranes are moist. NECK: There is no congestion. LUNGS: Clear to auscultation bilaterally. CARDIOVASCULAR: Rate and rhythm regular. S1, S2 present. ABDOMEN: Soft. There is no distention, [place] [address] CONSULTATION Name: DMITRY RANDOLPH Room: [address] IN [facility]#: [id number] Admission: 12/09/18 Attend Phys: Sathya Cabrera MD Discharge: Date of : 36 Report #: [id number] SKIN: Warm and dry. LABORATORY DATA: Hemoglobin 8.9, hematocrit 26.9, platelet count 367. WBC count 13.7. Sodium 134, potassium 4.3, chloride 103, bicarbonate 19, BUN 47, creatinine 1. Iron saturation 8%, total iron of 16, TIBC 207, B12 of 1929. ASSESSMENT AND PLAN: Pleasant 83-year-old female who presented with left lower extremity pain and was incidentally found to have iron deficiency anemia. The gastroenterology service has been consulted to evaluate this. The patient does not demonstrate any signs of overt gastrointestinal bleeding, but her last endoscopic evaluation was more than 10 years ago. We can proceed with EGD and colonoscopy tomorrow and make further recommendations based on these tests. By: 2120 0036Odell Blackwood MD /nt
[~2018-12-09 18:50] MED LIST changes: +CALCIUM 500 +1 EAC5 PO; +COLACE100 MG PO; +IRON325 PO; +POTASSIUM20 PO; +VITAMIN B-12500 MCG PO; +VOLTAREN50 MG PO
[2018-12-09 18:51] VITALS: BP 133/74
[2018-12-09 21:52] LABS: HEMATOCRIT 26.9 % (37.0-47.0); HEMOGLOBIN 8.9 gm/dL (12.0-15.0); MCH 27.7 pg (26.0-34.0); MCHC 32.9 g/dL (28.0-37.0); MCV 84.3 fL (80.0-100.0); MPV 7.9 fl. (7.2-11.1); NUCLEATED RBCS 0 /100WBC; PLATELET COUNT* 367 thou/uL (150-400); RDW-CV 15.3 % (10.5-14.5); WBC 13.7 thou/uL (4.0-11.0)
[2018-12-09 21:53] LABS: CALCIUM 8.9 mg/dL (8.5-10.1); CREATININE 1.6 mg/dL (0.6-1.3)
[2018-12-09 22:45] LABS: ABSOLUTE BASOPHILS 0.1 thou/uL (0.0-0.2); ABSOLUTE EOSINOPHILS 0.7 thou/uL (0.0-0.7); ABSOLUTE LYMPHOCYTES 0.8 thou/uL (0.8-5.3); ABSOLUTE MONOCYTES 0.5 thou/uL (0.0-1.2); ABSOLUTE NEUTROPHILS 11.5 thou/uL (1.6-8.1); PLATELET ESTIMATE ADEQUATE
[2018-12-09 22:47] LABS: ANISOCYTOSIS Occasional
--- NOTE | 2018-12-09 23:37 | NUR ---
REPORT TAKEN FROM LUCHO, AWAITING PATIENT'S ARRIVAL.
[2018-12-09 23:56] VITALS: BP 121/56
[2018-12-10] VITALS: BP 143/50
--- NOTE | 2018-12-10 03:01 | NUR ---
PATIENT RESTED IN BED, NO ACUTE CHANGES. PATIENT HAD FATIGUE, DID NOT SHOW SIGNS OF DISTRESS. CALL LIGHT WITHIN REACH, HOURLY ROUNDING OBSERVED, BED ALARM ON.
[2018-12-10 04:00] VITALS: BP 111/41
[2018-12-10 08:00] VITALS: BP 101/53
[2018-12-10 08:05] LABS: CALCIUM 8.7 mg/dL (8.5-10.1); POTASSIUM 4.8 mmol/L (3.5-5.1)
--- NOTE | 2018-12-10 10:18 | EKG ---
[place] [address] ELECTROCARDIOGRAM REPORT Name: DMITRY RANDOLPH Room: [address] ADM IN M.R.#: [id number] Admission: 12/09/18 Attend Phys: Sathya Cabrera MD Discharge: Date of : 36 Report #: [id number] THIS REPORT FOR: //name// [facility] ED Test Date: 2018-12-09 Test Time: 22:17:03 Pat Name: DMITRY RANDOLPH Department: Room: [facility] Gender: F Food Scientist: CONNOR : 1935 Requested By: Franki Montelongo Order Number: [id number] MD: Tereso Lima Measurements Intervals [place] Rate: 97 P: 66 [place]: 170 QRS: 21 QRSD: 91 T: 32 QT: 365 QTc: 464 Interpretive Statements Sinus rhythm Consider left ventricular hypertrophy Compared to ECG 11/30/2018 14:41:31 no change Electronically Signed On 12-10-2018 10:18:21 KNITTING DEMONSTRATOR by Tereso Lima [email or web address] <ELECTRONICALLY SIGNED> By: Tereso Lima MD, [facility] 12/10/18 1018 16 16 Tereso Lima MD, FACC /EPI
[2018-12-10 11:29] VITALS: BP 100/58
--- NOTE | 2018-12-10 14:55 | NUR ---
Pt sound asleep, dtr unable to be reach via phone. Will attempt to assess later. Per , Pt will need skilled at [place].
--- NOTE | 2018-12-10 15:02 | NUR ---
Pt is A&O. Resides at home with her grandson. Gson assists with ADLs and completes IADLs. Pt has a RW and wc at home that she can use for mobility. Hx of [facility]. Hx of skilled at [facility]. Per , Pt will need skilled at [place]. Await call back from dtr to confirm skilled facility choice. Following.
--- NOTE | 2018-12-10 19:50 | NUR ---
ASSUMED PT CARE AT 0700, PT LYING IN BED, CALL LIGHT IN REACH, A&O X4 WITH SOME INTERMITTENT CONFUSION. PT C/O PAIN IN LLE, PRN MEDS ON BOARD. SPECIAL EDUCATION TUTOR TRACING SINUS RHYTHM, LS DIMINISHED IN ALL LOBES, CONT ON 2LPM VIA NC. WILL CONT TO MONITOR.
--- NOTE | 2018-12-10 19:52 | NUR ---
PT LYING IN BED, CALL LIGHT IN REACH, ABLE TO MAKE NEEDS KNOWN. NEW ORDERS FOR TRAMADOL AND FLEXERIL FOR PAIN TO LLE, ULTRASOUND, MRI AND XRAY ALL NEGATIVE. [place] PLACED D/T PT UNABLE TO TOLERATE TRANSFER TO [facility]. PT TO HAVE CLEAR LIQUID DIET FOR DINNER AND NPO AFTER MIDNIGHT FOR PROCEDURE TOMORROW, HOLF LOVENOX INJECTIONS AT HS. HOURLY ROUNDING COMPLETED WELL TURN Q 2 HOURS, VSS.
[2018-12-10 20:00] VITALS: BP 141/72
[2018-12-11 04:00] VITALS: BP 159/89
--- NOTE | 2018-12-11 04:34 | NUR ---
PATIENT RESTED IN BED, HAD MUTIPLE EPISODES OF LIQUID STOOL. FALL PRECAUTIONS IN PLACE, CALL LIGHT WITHIN REACH, HOURLY ROUNDING OBSERVED, BED ALARM ON. PATIENT O2 INCREASED FROM 2 LITERS TO 4 LITERS. PATIENT IS NPO.
[2018-12-11 08:00] VITALS: BP 151/85
--- NOTE | 2018-12-11 08:00 | NUR ---
ASSUMED PT CARE AT 0700, PT IN BED, CALL LIGHT IN REACH, FALL PRECAUTIONS IN PLACE. MET[place]F CATH PATENT AND DRAINING DONG COLORED URINE, DR QUINN NOTIFIED. CONT ON 2LPM O2 VIA NC, PT DENIES ANY PAIN OR SOA AT THIS TIME. BOWEL PREP NOT COMPLETED OVER NIGHT, EGD AND COLONOSCOPY DISCONTINUED, CLEAR LIQUID DIET TODAY AND RESTART BOWEL PREP THIS AFTERNOON, EGD AND COLONOSCOPY RESCHEDULED FOR TOMORROW. PT A&O X4 WITH SOME INTERMITTENT CONFUSION. WILL CONT TO MONITOR.
[2018-12-11 12:29] LABS: CALCIUM 8.3 mg/dL (8.5-10.1); CREATININE 1.5 mg/dL (0.6-1.3); POTASSIUM 4.7 mmol/L (3.5-5.1)
[2018-12-11 12:32] LABS: URINE BILIRUBIN NEGATIVE (Negative); URINE BLOOD 3+ (Negative); URINE CLARITY SL CLOUDY; URINE COLOR STRAW; URINE GLUCOSE-RANDOM NEGATIVE (Negative); URINE KETONES NEGATIVE (Negative); URINE LEUKOCYTES-REFLEX 1+ (Negative); URINE NITRITE-REFLEX NEGATIVE (Negative); URINE PROTEIN 1+ (Negative); URINE SPECIFIC GRAVITY >= 1.030 (1.005-1.030)
[2018-12-11 12:42] LABS: SQUAMOUS 0-3 Few /LPF (0-3); URINE WBC-REFLEX 6-15 Few /HPF (0-5)
[2018-12-11 12:43] LABS: COARSE GRANULAR CASTS 0-3 Few /LPF (None Seen); CRYSTALS None Seen /LPF (None Seen); HYALINE CASTS 0-3 Few /LPF (None Seen); MUCUS 0-3 Light strn/LPF (None Seen)
[2018-12-11 12:45] LABS: ABSOLUTE LYMPHOCYTES 0.3 thou/uL (0.8-5.3); ABSOLUTE MONOCYTES 0.3 thou/uL (0.0-1.2); ABSOLUTE NEUTROPHILS 9.4 thou/uL (1.6-8.1); BASOPHILS 0.3 %; EOSINOPHILS 0.1 %; HEMATOCRIT 26.7 % (37.0-47.0); HEMOGLOBIN 8.7 gm/dL (12.0-15.0); LYMPHOCYTES 3.4 %; MCH 28.6 pg (26.0-34.0); MCHC 32.7 g/dL (28.0-37.0); MCV 87.4 fL (80.0-100.0); MONOCYTES 3.4 %; MPV 7.6 fl. (7.2-11.1); NUCLEATED RBCS 0 /100WBC; PLATELET COUNT* 325 thou/uL (150-400); POLYS 92.8 %; RBC 3.05 mil/uL (4.20-5.00); RDW-CV 15.6 % (10.5-14.5); WBC 10.1 thou/uL (4.0-11.0)
--- NOTE | 2018-12-11 13:56 | NUR ---
CLEAN ROOM TECHNICIAN ATTEMPTED TO SPEAK TO THE PATIENT TO DISCUSS DISCHARGE PLANNING NEEDS AND SNF AT D/C. PATIENT'S NURSE INFORMS THAT NOW IS NOT A GOOD TIME TO SPEAK WITH THE PATIENT SHE IS NOT ALERT AND ORIENTED AT THIS TIME. CM WILL ATTEMPT TO SPEAK TO THE PATIENT AT ANOTHER TIME.
[2018-12-11 15:33] VITALS: BP 156/88
--- NOTE | 2018-12-11 16:54 | 2DMMODE ---
[place] [address] 2 D/M-MODE ECHOCARDIOGRAM Name: DMITRY RANDOLPH Room: [address] IN [facility]#: [id number] Admission: 12/09/18 Attend Phys: Sathya Cabrera, Discharge: Date of : 37 Date of Service: 12/11/18 1654 Report #: [id number] THIS REPORT FOR: //name// APPROVED REPORT Study performed: 12/11/2018 16:18:48 EXAM: Comprehensive 2D, Doppler, and color-flow Echocardiogram Patient Location: In-Patient Room #: [facility] Status: routine BSA: 1.61 HR: 102 bpm BP: 156/88 mmHg Rhythm: NSR Other Information Study Quality: Good Indications Dyspnea 2D Dimensions IVSd: 10.14 (7-11mm) LVOT Diam: 19.30 (18-24mm) LVDd: 46.17 mm PWd: 10.38 (7-11mm) Ascending Ao: 31.45 (22-36mm) LVDs: 36.02 (25-40mm) Aortic Root: 31.99 mm Volumes Left Atrial Volume (Systole) LA ESV Index: 36.80 mL/m2 Aortic Valve AoV Peak Isac.: 1.15 m/s AO Peak Gr.: 5.32 mmHg LVOT Max P.70 mmHg AO Mean Gr.: 2.92 mmHg LVOT Mean P.33 mmHg LVOT Max V: 0.82 m/s AO V2 VTI: 20.46 cm LVOT Mean V: 0.53 m/s YI (VTI): 2.42 cm2 LVOT V1 VTI: 16.92 cm TDI Lateral E' Isac.: 0.09 m/s Pulmonary Valve PV Peak Isac.: 0.84 m/s PV Peak Gr.: 2.80 [place] [address] 2 D/M-MODE ECHOCARDIOGRAM Name: DMITRY RANDOLPH Room: [address] IN .R.#: [id number] Admission: 12/09/18 Attend Phys: Sathya Cabrera, Discharge: Date of : 37 Date of Service: 12/11/18 1654 Report #: [id number] Tricuspid Valve RAP Estimate: 5.00 mmHg TR Peak Gr.: 29.98 mmHg RVSP: 30.00 mmHg PA Pressure: 30.00 mmHg Left Ventricle The left ventricle is normal size. There appears to be a wide region of hypokinesis involving the mid to distal septum and distal anterior wall and apex. There is normal left ventricular wall thickness. Left ventricular systolic function is moderately decreased. LVEF is 30-35%. Grade I - abnormal relaxation pattern. Right Ventricle Right ventricle is mildly dilated. The right ventricular systolic function is normal. Atria Left atrium is mildly dilated. Right atrium is mildly dilated. Aortic Valve The aortic valve is normal in structure. No aortic regurgitation is present. There is no aortic valvular stenosis. Mitral Valve The mitral valve is normal in structure. Mild mitral regurgitation. No evidence of mitral valve stenosis. Tricuspid Valve The tricuspid valve is normal in structure. Mild tricuspid regurgitation. Mild pulmonary hypertension. Pulmonic Valve The pulmonary valve is normal in structure. Trace pulmonic regurgitation. Great Vessels The aortic root is normal in size. IVC is normal in size and collapses >50% with inspiration. Pericardium There is [place] [address] 2 D/M-MODE ECHOCARDIOGRAM Name: DMITRY RANDOLPH Room: [address] IN .R.#: [id number] Admission: 12/09/18 Attend Phys: Sathya Cabrera, Discharge: Date of : 37 Date of Service: 12/11/18 1654 Report #: [id number] <Conclusion> The left ventricle is normal size. There is normal left ventricular wall thickness. Left ventricular systolic function is moderately decreased. LVEF is 30-35%. Grade I - abnormal relaxation pattern. There appears to be a wide region of hypokinesis involving the mid to distal septum and distal anterior wall and apex. Right ventricle is mildly dilated. Left atrium is mildly dilated. Right atrium is mildly dilated. Mild tricuspid regurgitation. Mild pulmonary hypertension. <ELECTRONICALLY SIGNED> By: Soy Riley MD, FACC 12/11/18 1654 53 53 Soy Riley MD, FACC /INF
--- NOTE | 2018-12-11 19:06 | NUR ---
PT BEGAN C/O SOA AT APPROX 1200. BP 158/89, HR 109, O2 SAT 97%. DR QUINN NOTIFIED, GAVE ORDERS FOR CHEST XRAY, VQ SCAN, TROPONIN LEVEL STAT, ADMIT TO TELE WITH HYDRAULIC LIFT DRIVER, ONE TIME DOSE OF 1MG ATIVAN IV. TROPONIN CAME IN AT 0.61, NOTIFIED DR QUINN WHO GAVE ORDER FOR STAT EKG, CARDIOLOGY CONSULT, AND TO CALL NUC MED FOR STAT VQ SCAN. NUC MED NOTIFIED, DILEEP GARCIA, FRUIT HARVESTER MACHINE OPERATOR NOTIFIED OF TROP LEVEL, GAVE ORDERS TO WAIT AND SEE WHAT NEXT TROPONIN WAS. 2ND TROP LEVEL CAME IN AT 0.72, CARDIOLOGY FRUIT HARVESTER MACHINE OPERATOR, DILEEP GAVE ORDERS FOR STAT ECHO, DR QUINN ALSO NOTIFIED. PT STARTED ON HEART HEALTHY DIET, NPO AFTER MIDNIGHT PER CARDIOLOGY, EGD AND COLONOSCOPY WERE CANCELLED. PT STARTED ON IV ABTS FOR UTI WELL. PT IS A&O TO SELF ONLY, FALL PRECAUTIONS IN PLACE. CARDIOLOGY FRUIT HARVESTER MACHINE OPERATOR DILEEP AND DR TELLEZ REVIEWED ECHO, GAVE ORDERS FOR ONE TIME IV LASIX, DC FLUIDS, POSSIBLE CARDIAC CATH OR STRESS TEST IN AM. DR QUINN NOTIFIED OF ORDERS FROM CARDIOLOGY D/T PTS OUTPUT APPROX 200ML SINCE [address] QUINN GAVE ORDERS TO CONT WITH CARDIOLOGY ORDERS TO DC FLUIDS AND GIVE ONE TIME DOSE IV LASIX. THIRD TROPONIN LEVEL CALLED IN FROM LAB WAS 0.76. DR QUINN NOTIFIED, AWAITING CALL BACK AT THIS TIME.
[2018-12-11 20:00] VITALS: BP 118/65
[2018-12-12] VITALS (18 sets, daily range): BP systolic 124–172; BP diastolic 59–102
--- NOTE | 2018-12-12 01:59 | NUR ---
PATIENT RESTED IN BED, NO ACUTE CHANGES. PATIENT DOES NOT APPEAR TO BE IN DISTRESS, PATIENT DID NOT COMPLAIN OF SOA. FALL PRECAUTIONS IN PLACE, CALL LIGHT WITHIN REACH, HOURLY ROUNDING OBSERVED, BED ALARM ON.
[2018-12-12 05:57] LABS: HEMOGLOBIN 8.6 gm/dL (12.0-15.0); MCH 27.6 pg (26.0-34.0); MCV 83.6 fL (80.0-100.0); MPV 7.7 fl. (7.2-11.1); RBC 3.11 mil/uL (4.20-5.00); WBC 11.3 thou/uL (4.0-11.0)
[2018-12-12 06:27] LABS: CALCIUM 8.8 mg/dL (8.5-10.1); CREATININE 1.6 mg/dL (0.6-1.3); MAGNESIUM 2.4 mg/dL (1.8-2.4); POTASSIUM 4.7 mmol/L (3.5-5.1)
[2018-12-12 08:45] LABS: CHOLESTEROL 150 mg/dL (<200); HDL CHOLESTEROL 40 mg/dL (>40); LDL CHOLESTEROL 92 mg/dL (<100); TC:HDL 3.8 Ratio (Not establshd); TRIGLYCERIDE 93 mg/dL (<150); VLDL 19 mg/dL (<40)
[2018-12-12 08:46] LABS: SERUM ASSESSMENT Clear
--- NOTE | 2018-12-12 11:58 | NUR ---
Pt had stent placed today, spoke with two daughters, they are in agreement that Pt will need skilled. Still unable to speak with Pt regarding preference, but dtrs requested that referrals be sent to [facility] and [facility]. VICKY faxed
--- NOTE | 2018-12-12 14:55 | EKG ---
[place] [address] ELECTROCARDIOGRAM REPORT Name: AGUSTÍNDMITRY Helene Room: [address] ADM IN M.R.#: [id number] Admission: 12/09/18 Attend Phys: Sathya Cabrera MD Discharge: Date of : 37 Report #: [id number] THIS REPORT FOR: //name// [facility] Test Date: 2018-12-11 Test Time: 12:36:55 Pat Name: DMITRY RANDOLPH Department: Room: [address] Gender: F Glass Block Bender: : 1935 Requested By: Sathya Cabrera Order Number: [id number] Jean Carlos MD: Tereso Lima Measurements Intervals [place] Rate: 100 P: 92 [place]: 180 QRS: 36 QRSD: 101 T: 119 QT: 308 QTc: 398 Interpretive Statements Sinus tachycardia Probable anterior infarct, age indeterminate Compared to ECG 12/09/2018 22:17:03 Myocardial infarct finding now present Sinus rhythm no longer present Electronically Signed On 12-12-2018 14:55:19 DATA QUALITY CONSULTANT by Tereso Lima [email or web address] <ELECTRONICALLY SIGNED> By: Tereso Lima MD, [facility] 12/12/18 1455 1236 1236 Tereso Lima MD, [facility] /EPI
--- NOTE | 2018-12-12 14:56 | EKG ---
[place] [address] ELECTROCARDIOGRAM REPORT Name: DMITRY RANDOLPH Room: [address] ADM IN M.R.#: [id number] Admission: 12/09/18 Attend Phys: Sathya Cabrera MD Discharge: Date of : 37 Report #: [id number] THIS REPORT FOR: //name// [facility] Test Date: 2018-12-11 Test Time: 12:38:41 Pat Name: DMITRY RANDOLPH Department: Room: [address] Gender: F Pouncing Lathe Operator: : 1935 Requested By: Sathya Cabrera Order Number: [id number] Reading MD: Tereso Lima Measurements Intervals [place] Rate: 100 P: 93 [place]: 182 QRS: 34 QRSD: 99 T: 111 QT: 315 QTc: 407 Interpretive Statements Sinus tachycardia Probable anterior infarct, age indeterminate Electronically Signed On 12-12-2018 14:55:51 CHIEF JAILER by Tereso Lima [email or web address] <ELECTRONICALLY SIGNED> By: Tereso Lima MD, [facility] 12/12/18 1455 1238 1238 Tereso Lima MD, FACC /EPI
--- NOTE | 2018-12-12 15:00 | EKG ---
[place] [address] ELECTROCARDIOGRAM REPORT Name: DMITRY RANDOLPH Room: [address] ADM IN M.R.#: [id number] Admission: 12/09/18 Attend Phys: Sathya Cabrera MD Discharge: Date of : 37 Report #: [id number] THIS REPORT FOR: //name// [facility] Test Date: 2018-12-12 Test Time: 11:07:07 Pat Name: DMITRY RANDOLPH Department: Room: [address] Gender: F Threader Operator: : 1935 Requested By: Tereso Lima Order Number: [id number] Jean Carlos MD: Tereso Lima Measurements Intervals [place] Rate: 81 P: 97 [place]: 178 QRS: 47 QRSD: 93 T: 146 QT: 419 QTc: 487 Interpretive Statements Sinus rhythm LVH w/ repol abnormalities, possible ischemia Electronically Signed On 12-12-2018 14:59:49 APPRAISAL ANALYST by Tereso Lima [email or web address] <ELECTRONICALLY SIGNED> By: Tereso Lima MD, [facility] 12/12/18 1459 1107 1107 Tereso Lima MD, FACC /EPI
--- NOTE | 2018-12-12 15:07 | NUR ---
TR BAND REMOVED, NO DRAINAGE NOTED. DRESSING PLACED.
--- NOTE | 2018-12-12 15:19 | CARD ---
[address] [address] CARDIAC CATH REPORT Name: DMITRY RANDOLPH Helene Room: [address] IN .R.#: [id number] Admission: 12/09/18 Attend Phys: Sathya Cabrera MD Discharge: Date of : 36 Report #: [id number] THIS REPORT FOR: //name// APPROVED REPORT Study performed: 12/12/2018 08:09:52 Patient Details Patient Status: In-Patient Room #: 207 The patient is a 83 year-old female Event Personnel Tereso Lima Associate Professor Of Literacy, Melany Dowd RN Wire Stitcher Operator, Dayne Garrison (R) Monitor, Chantell Tapia RTR Scrub Procedures Performed VALENTÍN Place w/wo Plasty Single LAD Indication Non-STEMI , Dyspnea Risk Factors Hypercholesterolemia, Hypertension Admission/Lab Medications/Medications given during procedure Glycoprotein IllbIlla Inhibitors, Heparin Unfract. Procedure Narrative The patient was brought electively to the Cardiac Catheterization Laboratory and was prepped and draped in a sterile manner. The right wrist was infiltrated with 1% Lidocaine subcutaneous anesthesia. A Slender Glidesheath sheath was inserted into the right radial artery. Coronary angiography was performed using coronary diagnostic catheters. The right coronary system was accessed and visualized with a Diagnostic 3DRC 6fr catheter. The left coronary system was accessed and visualized with a Diagnostic JL 3.5 5fr catheter. Left ventricular/Aortic Valve gradient assessed via catheter pullback. Closure device was deployed with a 6 Fr Reg VascBand. The patient tolerated the procedure well and there [address] [address] CARDIAC CATH REPORT Name: DMITRY RANDOLPH Room: [address] IN [facility].#: [id number] Admission: 12/09/18 Attend Phys: Sathya Cabrera MD Discharge: Date of : 36 Report #: [id number] were no complications associated with the procedure. There was no hematoma. Intraoperative Conscious Sedation Sedation start time: 9:40 Case end Time: 10:24 Fentanyl 75 mcg Versed 1 mg Fluoro Time: 11.7 minutes Dose: DAP 40517 cGycm2 1267 mGy Contrast Type and Amount: Visipaque 200 ml Coronary Angiography The patient's coronary anatomy is right dominant. Diagnostic Cath Left Main 0% stenosis LAD 30% proximal and 90% stenosis noted at takeoff of 2nd diagonal Diagonal 2 50% ostial stenosis noted of small vessel Circumflex 30% mid stenosis L CORNELIO 60% mid stenosis Right Coronary 90% mid stenosis with collateral flow noted from left coronary Left Ventriculography Left Ventriculography was not performed. Hemodynamics The aortic pressure is 140/74 mmHg with a mean of 104 mmHg. The left ventricular pressure is 102/20 mmHg with a mean of mmHg. The left ventricular end diastolic pressure is 24 mmHg. There was no gradient across the aortic valve upon pullback. Pullback from the left ventricle to the aorta revealed no gradient across the aortic valve. PCI Technique Lesion Anticoagulation was achieved with Heparin. bolus of iv aggrastat given Percutaneous coronary intervention was performed on the mid left anterior descending artery segment. The lesion stenosis prior to intervention was 90% with JANE 3 flow. A 6FR XB 3.0 100CM Guide Catheter was used to engage the lm ostium. A BMW 190cm Interventional Guidewire was used to cross the lesion[place] [address] CARDIAC CATH REPORT Name: DMITRY RANDOLPH Room: [address] IN ..#: [id number] Admission: 12/09/18 Attend Phys: Sathya Cabrera MD Discharge: Date of : 36 Report #: [id number] A Balloon catheter Mini Trek RX 2.0 X 8 was inserted and inflated up to 10.00atm for 19seconds. Repeat angiography revealed the following post-dilatation results: 50% stenosis. Second bmw wire placed in the second diagonal branch. STENT DEPLOYMENT A drug-eluting stent Xience Shara [id number] was inserted and inflated up to 10.00atm for 15seconds. Repeat angiography revealed the following post-stent deployment results: 0% stenosis. Additional Inflation: 11.00atm for 20seconds. Slight progression of stenosis of ostium of second diagonal branch that now arose from within the stent from 50% to 70% stenosis. However, JANE grade III flow noted and the patient was asymptomatic. Second diagonal branch was noted to be a small vessel so it was decided not to perform PTCA of the diagonal ostium. Final angiography reveals 0 % stenosis with JANE 3 flow. Conclusion 1. 90% stenosis of mid lad, and 90% stenosis of mid rca. The rca was noted to fill retrograde from left coronary artery collaterals. 2. successful placement of a drug eluting stent in the mid lad Recommendations Cardiac Rehabilitation Referral Aggressive Medical Therapy <ELECTRONICALLY SIGNED> By: Tereso Lima MD, [facility] 12/12/18 1519 1519 1519Daazalia Lima MD, [facility] /INF
--- NOTE | 2018-12-12 17:21 | NUR ---
PT HAS HAD INTERMITTENT CONFUSION, TALKING TO PEOPLE THAT ARE NOT HERE. CAN ANSWER QUESTIONS APPROPRIATELY. EASILY REORIENTED. PT C/O PAIN IN R HIP AND LEG, MANAGED WITH ORDERED PAIN MED. R WRIST CATH SITE WITHOUT PAIN, DRESSING CDI, NO DRAINAGE NOTED, LIGHT BRUISING TO SITE. METCALF TO DD WITH DARK DONG URINE. NO OTHER C/O.
[2018-12-13 04:00] VITALS: BP 138/69
[2018-12-13 04:48] LABS: HEMATOCRIT 23.6 % (37.0-47.0); HEMOGLOBIN 7.7 gm/dL (12.0-15.0); MCH 27.7 pg (26.0-34.0); MCHC 32.5 g/dL (28.0-37.0); MCV 85.2 fL (80.0-100.0); MPV 7.6 fl. (7.2-11.1); RBC 2.77 mil/uL (4.20-5.00); RDW-CV 15.5 % (10.5-14.5); WBC 8.4 thou/uL (4.0-11.0)
[2018-12-13 05:10] LABS: CALCIUM 7.3 mg/dL (8.5-10.1); MAGNESIUM 2.2 mg/dL (1.8-2.4); POTASSIUM 3.8 mmol/L (3.5-5.1); TROPONIN-I LEVEL 0.55 ng/mL (<0.06)
--- NOTE | 2018-12-13 05:32 | NUR ---
ASSUMED CARE OF PT AFTER REPORT AT 1930. PT A&OX4. CONFUSED AT TIMES. VSS. PHYSICAL ASSESSMENT COMPLETED AND CHARTED. PT ON RA WITH 96% O2 SAT. PT TRACING SR ON TELE. POST CATH SITE TO RIGHT WRIST C/D/I. PT REMOVED DRESSING TO RIGHT WRIST & REMOVED METCALF STAT LOCK IN TIMES OF CONFUSION. THIS NURSE APPLIED BAND AID TO POST CATH SITE. PT C/O OF LEG & HIP PAIN-PAIN MEDS GIVEN PER JAN.
[2018-12-13 07:30] VITALS: BP 182/114
[2018-12-13 11:45] VITALS: BP 140/68
--- NOTE | 2018-12-13 12:23 | EKG ---
[place] [address] ELECTROCARDIOGRAM REPORT Name: DMITRY RANDOLPH Room: [address] ADM IN M.R.#: [id number] Admission: 12/09/18 Attend Phys: Sathya Cabrera MD Discharge: Date of : 36 Report #: [id number] THIS REPORT FOR: //name// [facility] Test Date: 2018-12-13 Test Time: 08:32:28 Pat Name: DMITRY RANDOLPH Department: Room: [address] Gender: F Basket Turner: : 1935 Requested By: Tereso Lima Order Number: [id number] Jean Carlos MD: Tereso Lima Measurements Intervals [place] Rate: 81 P: 80 ID: [id number] QRS: 50 QRSD: 106 T: 158 QT: 412 QTc: 479 Interpretive Statements Sinus rhythm LVH w/ repol abnormalities, possible ischemia Compared to ECG 12/12/2018 11:07:07 No significant changes Electronically Signed On 12-13-2018 12:23:03 PROTOTYPE ENGINEER by Tereso Lima [email or web address] <ELECTRONICALLY SIGNED> By: Tereso Lima MD, [facility] 12/13/18 1223 0832 0832 Tereso Lima MD, [facility] /EPI
--- NOTE | 2018-12-13 14:09 | CON ---
[address] [address] CONSULTATION Name: DMITRY RANDOLPH Room: [address] IN M.R.#: [id number] Admission: 12/09/18 Attend Phys: Sathya Cabrera MD Discharge: Date of : 36 Report #: [id number] THIS REPORT FOR: //name// CC: Sathya Eubanks DATE OF SERVICE: 12/11/2018 HISTORY OF PRESENT ILLNESS: This is an 83-year-old female patient who is difficult to evaluate. Neurological consultation was requested to evaluate the patient for any neurological etiology for the patient's left lower extremity problems. The patient's main complaint at the moment is her respiratory problem. She is not sure which leg is affected. She said her problem now is more on the right lower extremity than it is in the left lower extremity. She said it started with the right lower extremity, but now both extremities are affected. She also indicates and the records confirmed that she is going to have a colonoscopy. Her weakness is severe. She is having pain in the back area. As mentioned above, she is complaining more of the respiratory difficulty than anything else at the moment. REVIEW OF SYSTEMS: Records were reviewed. She had foot problems. She had ankle problem. She had joint problems in both shoulder joints. She has anemia, for which she is being worked up. She has possible renal cysts. History of cellulitis. Records indicate she also has a history of atrial fibrillation. I tried to ask her more history about it. She did not come up with much history in that regard. 14-point review of systems was carried out and that was her relevant 14-point review of system. PAST MEDICAL HISTORY: Positive for anemia and pain in the legs. Past medical history according to her is negative for stroke. FAMILY HISTORY: Negative for early age strokes. SOCIAL HISTORY: She denies the abuse of alcohol. PHYSICAL EXAMINATION: Indicates she is alert. She can tell me what month it is. She can tell me what date it is. She can name the president. Her speech looks intact. Cranial nerve examination 2-12 looks unremarkable. Neuromuscular examination is somewhat unusual. She can tell me position sense pretty persistently. She has very limited movement of the shoulders, which is because of injury there. Initially, she will not move the right or the left leg, but subsequently she was able to move at least proximally. Pulses are difficult to feel. Her reflexes are diminished, but she does not relax. Tone looks symmetrical. I could not look at the fundus. There is no meningeal sign. She is moderately built individual who does not have any dysmorphic features of eyes, ears and face. She does appear to [place] [address] CONSULTATION Name: DMITRY RANDOLPH Room: [address] IN .R.#: [id number] Admission: 12/09/18 Attend Phys: Sathya Cabrera MD Discharge: Date of : 36 Report #: [id number] rhonchi on both sides. Blood pressure is 151/85, pulse is 107, temperature is 98.4. She does not have any edema, but her pulses are difficult to feel. LABORATORY DATA: Indicates a white count of 13.7. Sodium of 134. She did have an MRI of the lumbar spine during the last admission, which showed severe disease. IMPRESSION: I suspect multiple etiologies may be contributing to her symptoms. 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 I cannot exclude neuropathy in this patient. I discussed with the patient that she needs further workup, but we are limited how much workup we can do here. She needs an EMG, and she needs an evaluation by neurosurgeon, and we do not have that available. She might be having some contribution from some vascular insufficiency, and we will evaluate that further. RECOMMENDATIONS: I will discuss with you. We will await rest of the workup, especially GI and respiratory workup. I will get an arterial Doppler done, but her workup is going to be difficult in this hospital because we cannot do EMG or a neurosurgery consult, which should be the next step. Thank you very much for this referral. More than 50 minutes of time was spent taking care of this patient and majority of that time was spent counseling and coordinating her care. <ELECTRONICALLY SIGNED> By: Ruslan Martin MD 12/13/18 1409 1221 [id number] Martin MD /nt
--- NOTE | 2018-12-13 14:13 | NUR ---
SCRAP PILER ATTEMPTED TO SPEAK TO THE PATIENT TO DISCUSS DISCHARGE PLANNING NEEDS AND CHOICE OF SNF AT D/C. RN IN-CHARGE OF THE PATIENT IN THE ROOM AND INFORMS THAT PATIENT IS NOT ALERT ENOUGH TO DISCUSS AT THIS TIME. CM WILL F/U AT ANOTHER TIME TO DISCUSS.
[2018-12-13 15:09] LABS: BE 0.8 mmol/L (-2 to +3); PCO2 36.3 mmHg (35.0-45.0); PO2 76.2 mmHg (75.0-100.0)
[2018-12-13 15:42] VITALS: BP 120/55; BP 133/66; BP 139/71
[2018-12-13 15:52] VITALS: BP 140/72
[2018-12-13 20:00] VITALS: BP 132/72
[2018-12-14] VITALS (7 sets, daily range): BP systolic 127–171; BP diastolic 73–110
[2018-12-14 04:49] LABS: HEMATOCRIT 29.1 % (37.0-47.0); MCH 28.5 pg (26.0-34.0); MCHC 33.7 g/dL (28.0-37.0); MCV 84.6 fL (80.0-100.0); MPV 7.8 fl. (7.2-11.1); RBC 3.44 mil/uL (4.20-5.00); RDW-CV 15.7 % (10.5-14.5); WBC 7.6 thou/uL (4.0-11.0)
[2018-12-14 04:56] LABS: CREATININE 2.1 mg/dL (0.6-1.3); MAGNESIUM 2.6 mg/dL (1.8-2.4); POTASSIUM 4.3 mmol/L (3.5-5.1)
[2018-12-14 05:19] LABS: HEMOGLOBIN 9.8 gm/dL (12.0-15.0)
--- NOTE | 2018-12-14 05:54 | NUR ---
ASSUMED PT CARE @ 1930. PT AWAKE AND ORIENTED TO SELF AND PLACE. CAN BE CONFUSED AT TIMES. VSS. 02 SAT IS 97% IN ROOM AIR. NOT IN DISTRESS. TURNED TO SIDES Q2H. METCALF CATHETER PATENT. HOURLY ROUNDING DONE FOR SAFETY. CALL LIGHT WITHIN REACH.
[2018-12-15] VITALS: BP 129/68
[2018-12-15 04:00] VITALS: BP 105/55
[2018-12-15 06:26] LABS: ALBUMIN 2.6 g/dL (3.4-5.0); CALCIUM 7.9 mg/dL (8.5-10.1); CREATININE 1.9 mg/dL (0.6-1.3); POTASSIUM 3.8 mmol/L (3.5-5.1); TOTAL BILIRUBIN 0.4 mg/dL (<0.1-1.0); TOTAL PROTEIN 5.7 g/dL (6.4-8.2)
--- NOTE | 2018-12-15 06:35 | NUR ---
ASSUMED PT CARE AT APPROX 1930. PT AWAKE, CAN BE ORIENTED AT TIMES. VSS. CARDIAC MONITORIN PLACE TRAING SR. COMPLAINED OF LEFT SCAPULAR PAIN, PARTIALLY RELIEVED BY NORCO, FLEXERIL AND ATIVAN GIVEN PER JAN AND SOME COLD PACKS. CALL LIGHT IN PLACE. HOURLY ROUNDING DONE FOR PT SAFETY. FALL PRECAUTIONS IN PLACE.
[2018-12-15 08:00] VITALS: BP 121/52
--- NOTE | 2018-12-15 09:43 | NUR ---
assumed pt care report received form nurse. pt is aox3 forgetfull sr on the cdc associate. respiration labored because of pain. on 1 l nc and saturation is above 95%. pt complains of pain in left buttocks. percocet given as ordered. lidocaine patch applied on left buttock. pt says she augustine like heating pad. dr corona made aware. awaiting for orders will continue to [facility].
[2018-12-15 12:00] VITALS: BP 128/72
[2018-12-15 16:00] VITALS: BP 156/74
[2018-12-15 20:00] VITALS: BP 112/57
[2018-12-16] VITALS (7 sets, daily range): BP systolic 108–171; BP diastolic 57–92
[2018-12-16 06:18] LABS: ALBUMIN 2.7 g/dL (3.4-5.0); CALCIUM 8.2 mg/dL (8.5-10.1); CREATININE 1.2 mg/dL (0.6-1.3); POTASSIUM 4.2 mmol/L (3.5-5.1)
--- NOTE | 2018-12-16 06:29 | NUR ---
ASSUMED PT CARE @1930. PT AWAKE AND FORGETFUL. VSS. SR ON PURCHASING DEPARTMENT CLERK. PT COMPLAINED OF BACK PAIN. REPOSITIONING DONE. MAINTAINED HEATING PAD IN PLACE. PAIN MEDS GIVEN PER JAN. VERBALIZED PARTIAL RELIEF. WAS ABLE TO SLEEP INTERMITTENTLY. HOURLY ROUNDING DONE FOR PT SAFETY. CALL LIGHT WITHIN REACH.
--- NOTE | 2018-12-16 09:24 | NUR ---
RECEIVED PT REPORT AT 0700 PT IS AOX3 WAS FOUND SLEEPING INBED. NO COMPLAINT OF PAIN. SR ON AIRCRAFT NAVIGATOR. VSS. HEATING PAD ON. LIDOCAINE PATCH PUT ON BACK AREA. MEDICINES GIVEN. REPORT GIVEN TO NURSE LNAZA ON FOR TRANSFER. PT TRANSFERED TO ROOM 310 AT 0920.
--- NOTE | 2018-12-16 10:43 | NUR ---
PT TRANSFERRED TO UNIT. ASSESSMENT AND VITALS COMPLETED. PT C/O PAIN, MEDS GIVEN ORDERED. PT IS HAVING ANXIETY RELATED TO SOB, PULSE OX 96% ON ROOM AIR. 2 LITERS O2 BY NASAL CANNULA IN PLACE. TO REDUCE PT ANXIETY. FALL RISK PRECAUTIONS IN PLACE. WILL CONTINUE TO MONITOR.
--- NOTE | 2018-12-16 18:06 | NUR ---
PT REMAINED ALERT AND ORIENTED TO SELF AND SITUATION, SHOWED CONFUSION AND FORGETFULNESS AT TIMES. PT WAS C/O PPAIN, MEDS GIVEN ORDERED. PT C/O SOB, 2 LITERS O2 BY NASAL CANNULA PLACED ON PT FOR ANXIETY, PULSE OX WAS 97% ON ROOM AIR PRIOR TO PLACING OXYGEN ON. PT SLEPT DURING THIS SHIFT. FEEDER HELPED PT EAT LUNCH AND DINNER. FALL RISK PRECAUTIONS IN PLACE. HOULRY ROUNDING COMPLETED. WILL CONTINUE TO MONITOR.
[2018-12-17] VITALS (7 sets, daily range): BP systolic 94–156; BP diastolic 46–90
[2018-12-17 04:23] LABS: HEMATOCRIT 31.1 % (37.0-47.0); HEMOGLOBIN 9.9 gm/dL (12.0-15.0); MCH 28.1 pg (26.0-34.0); MCV 87.9 fL (80.0-100.0); MPV 8.6 fl. (7.2-11.1); RBC 3.54 mil/uL (4.20-5.00); RDW-CV 16.7 % (10.5-14.5); WBC 15.4 thou/uL (4.0-11.0)
[2018-12-17 05:01] LABS: CALCIUM 8.2 mg/dL (8.5-10.1); CREATININE 1.1 mg/dL (0.6-1.3); POTASSIUM 4.6 mmol/L (3.5-5.1)
--- NOTE | 2018-12-17 06:39 | NUR ---
Pt c/o pain to bilat hips and into back for most of night. Pt given HC/APAP twice, lorazepam once, and dose of flexeril. Pt finally appears to be asleep ((and not moaning) as of 0600. Pt incontinent of urine twice overnight, and had two BM smears. VSS. Pt's dtr (Jeannie), called to check on pt early this am. States she wants to be called if pt to be transferred so she can bring clothes for her. Will continue to monitor.
--- NOTE | 2018-12-17 12:44 | NUR ---
SW followed up on dc planning and spoke with pt dtr as pt was very sleepy this morning. Pt dtr said that pt and pt family agreed upon pt to dc to [facility] SNF. ZELDA mentioned that referral was also sent to [facility] and pt dtr said that was no longer needed since pt had agreed to [facility]. ZELDA called admissions at [facility] and spoke with Roberta who requested updated referral; SW faxed referral to [facility]; a new insurance auth will need to be obtained. SW to continue to follow to assist with finalizing safe dc plan/placement.
[2018-12-17] MEDS ORDERED: TOPROL XL50 MG PO (13:50)
[2018-12-17] MEDS ORDERED: ASPIR 8181 MG PO (13:50)
[2018-12-17] MEDS ORDERED: THERA M PLUS T1 EAC2 PO (13:52)
[2018-12-17] MEDS ORDERED: PREDNISONE 10 M10 MG PO (13:52)
[2018-12-17] MEDS ORDERED: VOLTAREN GEL 1100 G2 TOP (13:54)
[2018-12-17] MEDS ORDERED: FLEXERIL PO (14:06)
[2018-12-17] MEDS ORDERED: PLAVIX 75 MG TA75 M1 PO (14:06)
[2018-12-17] MEDS ORDERED: LASIX 20 MG TAB20 MG PO (16:28)
[2018-12-17] MEDS ORDERED: POTASSIUM20 PO (16:28)
--- NOTE | 2018-12-17 16:29 | NUR ---
PATIENT VERY DROWSY THIS AM BUT DID WAKE UP TO TAKE PILLS AND EAT BREAKFAST WHEN ASSISTED. IV ABX DC'D THIS AM. PATIENT INCONTINENT OF LARGE AMOUNTS OF URINE. PATIENT UP TO CHAIR WITH 3 ASSIST AND GAIT BELT. PATIENT HAS NOT C/O HIP OR LEG PAIN SINCE SITTING UP IN THE CHAIR. PATIENTS DAUGHTER DEENA CALLING FOR UPDATE, UPDATE GIVEN. AWAITING INSURANCE AUTH FOR [facility].
[2018-12-17] MEDS ORDERED: ENSURE PO (16:33)
[2018-12-18 00:30] VITALS: BP 138/45
[2018-12-18 04:18] VITALS: BP 146/63
[2018-12-18 04:53] LABS: MAGNESIUM 2.1 mg/dL (1.8-2.4); POTASSIUM 4.3 mmol/L (3.5-5.1)
--- NOTE | 2018-12-18 07:18 | NUR ---
PATIENT SLEPT VERY LITTLE THIS SHIFT. PATIENT WAS GIVEN PAIN MEDICINE SEVERAL TIMES WITH VERY LITTLE RELIEF. PATIENT REMAINS ON OXYGEN AT 2L PER NASAL CANNULA. WILL CONTINUE TO MONITOR.
[2018-12-18 07:30] VITALS: BP 137/69
--- NOTE | 2018-12-18 16:23 | NUR ---
INSURANCE AUTH REMAINS PENDING. PATIENT DROWSY IN AM BUT AWAKENS EASILY FOR MEDS AND MEAL. INCONTINENT OF URINE, PATIENT DID ASK FOR BEDPAN THIS AFTERNOON. OT WORKED WITH PATIENT THIS EVENING, HYGIENE PERFORMED. PATIENT HAD MRI SPINE AND CT HEAD, CT NEGATIVE. PATIENTS DAUGHTER DEENA UPDATED ON PLAN OF CARE.
[2018-12-18 20:00] VITALS: BP 90/39
[2018-12-19] VITALS: BP 133/63
[2018-12-19 04:00] VITALS: BP 112/53
[2018-12-19 04:36] LABS: CALCIUM 8.1 mg/dL (8.5-10.1); POTASSIUM 4.8 mmol/L (3.5-5.1)
--- NOTE | 2018-12-19 05:18 | NUR ---
ASSUMED PATIENT CARE AT 1900. PATIENT VERY GROUCHY, ALERT AND ORIENTED TIMES FOUR. COMPLAINTS OF PAIN, ORAL MEDICATION GIVEN WHEN BLOOD PRESSURE WAS HIGH ENOUGH TO GIVE HER SOMETHING. COMPLAINTS OF NOT BEING ABLE TO BREATHE SEVERAL TIMES. CHECKED O2 LEVEL EACH TIME AND PATIENT WAS BETWEEN 98-100%. ABLE TO TRANSFER PATIENT TO THE [facility] [place] [facility] TIMES THROUGH THE NIGHT. PATIENT REQUESTED TO BE IN A CHAIR EARLY THIS AM AND HAS HAD FEWER COMPLAINTS OF PAIN SINCE BENG IN THE CHAIR. TRANSFERS WITH MAX ASSISST OF 2. FALL RISK PRECATIONS IN PLACE. JEWELRY JOBBER AND HOURLY ROUNDING COMLETED CHARTED
[2018-12-19 07:40] VITALS: BP 104/50
--- NOTE | 2018-12-19 10:22 | NUR ---
ZELDA called Roberta in admissions at [facility] to try to follow up on dc placement and status of pending referral due to insurance authorization needed and not yet received. Roberta did not answer so ZELDA left a detailed message and requested a call back for updates on pt to dc to SNF when placement finalized. SW to continue to follow.
[2018-12-19 11:43] VITALS: BP 119/48
--- NOTE | 2018-12-19 15:21 | NUR ---
REGISTERED OCCUPATIONAL THERAPIST SPOKE TO DARLIN WITH [facility] TO DISCUSS INSURANCE AUTH AND ACCEPTANCE OF THE PATIENT. DARLIN INFORMS THAT THE FACILITY 'HAS NOT RECIEVED AUTH' BUT HAVE SPOKEN TO [employer] AND THEY INFORM THAT THE CASE IS 'UNDER REVIEW'. D/C CASE MANAGEMENT SOCIAL WORKER INFORMED THE PHYSICIAN AND RN IN-CHARGE OF THE PATIENT OF THIS INFO. CM WILL REMAIN AVAILABLE TO ASSIST AND FOLLOW NEEDED.
[2018-12-19 15:48] VITALS: BP 115/49
--- NOTE | 2018-12-19 17:05 | NUR ---
CONT AWAITING INSURANCE AUTH FOR DISCHARGE TO SNF. PATIENT UP TO BSC AND CHAIR MULTIPLE TIMES. PATIENT CONTINUES TO ASK FOR BEDPAN, PATIENT INSTRUCTED THAT SHE NEEDS TO BE GETTING UP TO BSC. ASSISTED WITH GAIT BELT. IV REMAINS SL. PRN TYLENOL GIVEN X 2 AND TRAMADOL GIVEN FOR HIP PAIN. TURNED Q2, HEELS ELEVATED.
[2018-12-20 00:30] VITALS: BP 100/47
[2018-12-20 04:30] VITALS: BP 112/62
--- NOTE | 2018-12-20 05:28 | NUR ---
PATIENT SLEPT MOST OF THE NIGHT. PATIENT WAS GIVEN PAIN MEDICINE TWICE THIS SHIFT. PATIENT REMAINS ON OXYGEN AT 2L PER NASAL CANNULA. PATIENT IS POSSIBLY BEING DISCHARGED TODAY. WILL CONTINUE TO MONITOR.
[2018-12-20 06:36] LABS: CALCIUM 8.3 mg/dL (8.5-10.1); CREATININE 0.8 mg/dL (0.6-1.3); POTASSIUM 4.6 mmol/L (3.5-5.1)
[2018-12-20 07:50] VITALS: BP 104/52
[2018-12-20 09:46] LABS: HEMATOCRIT 30.2 % (37.0-47.0); HEMOGLOBIN 9.8 gm/dL (12.0-15.0); MCH 28.2 pg (26.0-34.0); MCHC 32.3 g/dL (28.0-37.0); MCV 87.3 fL (80.0-100.0); MPV 8.1 fl. (7.2-11.1); RBC 3.46 mil/uL (4.20-5.00); RDW-CV 17.4 % (10.5-14.5); WBC 13.5 thou/uL (4.0-11.0)
--- NOTE | 2018-12-20 11:04 | NUR ---
ZELDA called and spoke with Carmela in admissions at [facility] to check on status of referral/insurance auth. Carmela explained that she heard back from [facility] this morning requesting a peer to peer. ZELDA informed Dr Lacy of the information: to call [phone] option 5 by 4 pm. SW to continue to follow to assist with finalizing safe dc plan/placement.
--- NOTE | 2018-12-20 11:34 | NUR ---
Nutrition: Pt assessed for LOS. Admitted with leg pain. Has been trying to discharge to SNF - awaiting auth. Pt needs help eating. Heart Healthy diet ordered. Wt: 146#. alb 2.7, prealb 30. Physician indicated moderate PCM - defer DX. Pt appears at mild nutrition risk. Will follow per protocol.
[2018-12-20 12:07] VITALS: BP 147/90
[2018-12-20] MEDS ORDERED: LIDOPATCH1 EACH TOP (12:37)
[2018-12-20] MEDS ORDERED: TRAMADOL 50 MG50 MG PO (12:37)
[2018-12-20 14:00] VITALS: BP 147/90
--- NOTE | 2018-12-20 14:01 | NUR ---
ASSESSMENT COMPLETE. PT ALERT AND ORIENTED X4. PT SLEEPY THIS AM. PT GIVEN PRN PAIN MEDICATION AND LIDOCAINE PATCH TO LEFT HIP. IV TAKEN OUT WITHOUT ANY COMPLICATIONS. PT DC TO [facility]. NSR ON TELE MONITOR. PT IS UP ONE ASSIST TO BSC. Q2 TURN. SEE ASSESSMENT AND VITALS FOR OTHER DETAILS. CALL LIGHT WITHIN REACH, WILL CONTINUE PLAN OF CARE
--- NOTE | 2019-01-01 10:07 | CON ---
[address] [address] CONSULTATION Name: DMITRY RANDOLPH Room: [address] IN M.R.#: [id number] Admission: 12/09/18 Attend Phys: Sathya Cabrera MD Discharge: 12/20/18 Date of : 36 Report #: [id number] THIS REPORT FOR: //name// CC: Sathya Eubanks DATE OF SERVICE: 12/14/2018 REQUESTING PHYSICIAN: Dr. Hernandez. REASON FOR CONSULTATION: Acute kidney injury. HISTORY OF PRESENT ILLNESS: The patient is an 83-year-old female admitted to the hospital on 12/10/2018 with complaints of pain in the left lower extremity. The patient experienced a heart attack while in the hospital, was taken to the rn labor delivery couple days ago, had cardiac catheterization done and angioplasty. It was stenting of some coronary arteries. Her creatinine went up to 2.0 from the 1.5 and I was consulted. Her left ventricular ejection fraction is 30-35%. PAST MEDICAL HISTORY: Includes: 1. Coronary artery disease. 2. Ischemic cardiomyopathy. 3. History of chronic kidney disease, stage 3. 4. General debility. The patient is wheelchair bound. 5. History of hypertension. 6. History of paroxysmal atrial fibrillation, now in sinus rhythm. 7. History of colitis. 8. History of lower GI bleed. MEDICATIONS: Reviewed from my standpoint, she is on lisinopril 5 mg a day. FAMILY HISTORY: Noncontributory to this 83-year-old lady. SOCIAL HISTORY: Lives at home. No tobacco or alcohol abuse. REVIEW OF SYSTEMS: Unobtainable secondary to her mental status. She is very minimally engaging in conversation. Attempts were made to collect review of systems. Also discussed this case with her daughter. PHYSICAL EXAMINATION: GENERAL: She is awake. VITAL SIGNS: Blood pressure 134/75, heart rate is 71, afebrile. HEENT: Pupils are round. NECK: [place] [address] CONSULTATION Name: DMITRY RANDOLPH Room: [address]#: [id number] Admission: 12/09/18 Attend Phys: Sathya Cabrera MD Discharge: 12/20/18 Date of : 36 Report #: [id number] LUNGS: Very decreased air movements. She is not making good inspiratory effort. CARDIOVASCULAR: Distant heart tones, but regular. No pericardial rub. ABDOMEN: Soft. EXTREMITIES: Trace to +1 edema. LABORATORY DATA: Her urine culture positive for E. coli. Her white count initially were up to 13,000, down to 7,600. Her creatinine is 2.1 today, was 2.0 yesterday. ASSESSMENT: 1. Acute kidney injury, most likely multifactorial, combination of decreased ejection fraction due to myocardial infarction and other contributing factors are Escherichia coli, urinary tract infection and contrast nephropathy. 2. Coronary artery disease, status post myocardial infarction, status post catheterization and angioplasty and stenting right coronary artery. 3. Ischemic cardiomyopathy with an ejection fraction of left ventricle of about 30%. 4. Hypertension. 5. Chronic kidney disease, stage 3. 6. Paroxysmal atrial fibrillation. PLAN: 1. Would stop her lisinopril. 2. Continue antibiotics for Escherichia coli. 3. I would probably just continue with gentle oral hydration and would not use her diuretics for now. Discussed with Amrita, nurse practitioner for Cardiology. Thank you very much for asking my opinion on acute kidney injury. <ELECTRONICALLY SIGNED> By: Patrick Stokes MD 01/01/19 1007 0924 0043Alexcourtney Stokes MD /[facility]
== END 2018-12-20 13:59 | DRG 246 ==
LOC: M.ERS 18:50 → M.TBA-ER 22:35 → M.2W 22:35 → M.3W 12-16 09:36
PROVIDERS: Emergency Medicine Emergency Medical Services; Family Medicine; Internal Medicine; Internal Medicine Cardiovascular Disease; Internal Medicine Nephrology; Registered Nurse; ADMIT Internal Medicine
PROC: 4A023N7 Measurement of Cardiac Sampling and Pressure, Left Heart, Percutaneous Approach (ICD-10-PCS; principal; 2018-12-12)
PROC: B211YZZ Fluoroscopy of Multiple Coronary Arteries using Other Contrast (ICD-10-PCS; principal; 2018-12-12)
PROC: 027034Z Dilation of Coronary Artery, One Artery with Drug-eluting Intraluminal Device, Percutaneous Approach (ICD-10-PCS; principal; 2018-12-12)
PROC: 30233N1 Transfusion of Nonautologous Red Blood Cells into Peripheral Vein, Percutaneous Approach (ICD-10-PCS; 2018-12-13)
DX: I21.4 Non-ST elevation (NSTEMI) myocardial infarction (principal); J15.6 Pneumonia due to other Gram-negative bacteria; I50.43 Acute on chronic combined systolic (congestive) and diastolic (congestive) heart failure; N17.0 Acute kidney failure with tubular necrosis; I13.0 Hypertensive heart and chronic kidney disease with heart failure and stage 1 through stage 4 chronic kidney disease, or unspecified chronic kidney disease; N39.0 Urinary tract infection, site not specified; E44.0 Moderate protein-calorie malnutrition; E78.5 Hyperlipidemia, unspecified; D50.9 Iron deficiency anemia, unspecified; M54.16 Radiculopathy, lumbar region; I25.10 Atherosclerotic heart disease of native coronary artery without angina pectoris; I25.5 Ischemic cardiomyopathy; N18.3 Chronic kidney disease, stage 3 (moderate); M48.061 Spinal stenosis, lumbar region without neurogenic claudication; I48.0 Paroxysmal atrial fibrillation; M54.32 Sciatica, left side; K44.9 Diaphragmatic hernia without obstruction or gangrene; M19.90 Unspecified osteoarthritis, unspecified site; E78.00 Pure hypercholesterolemia, unspecified; Z90.710 Acquired absence of both cervix and uterus; Z87.81 Personal history of (healed) traumatic fracture; Z88.1 Allergy status to other antibiotic agents; Z88.2 Allergy status to sulfonamides; Z88.8 Allergy status to other drugs, medicaments and biological substances; Z83.3 Family history of diabetes mellitus; Z68.24 Body mass index [BMI] 24.0-24.9, adult

== ENCOUNTER 2019-01-16 23:38 | Emergency (ER) | payer OTHER ==
[~2019-01-16] VITALS: Ht 157.5 cm; Wt 56.2 kg
[~2019-01-16 23:38] MED LIST changes: +ASPIR 8181 MG PO; +ENSURE PO; +PLAVIX 75 MG TA75 M1 PO; +THERA M PLUS T1 EAC2 PO; +TOPROL XL50 MG PO; +VOLTAREN GEL 1100 G2 TOP
[2019-01-17 00:11] LABS: ABSOLUTE BASOPHILS 0.1 thou/uL (0.0-0.2); ABSOLUTE EOSINOPHILS 0.1 thou/uL (0.0-0.7); ABSOLUTE LYMPHOCYTES 2.2 thou/uL (0.8-5.3); ABSOLUTE MONOCYTES 1.5 thou/uL (0.0-1.2); BASOPHILS 0.6 %; EOSINOPHILS 0.8 %; HEMATOCRIT 37.3 % (37.0-47.0); HEMOGLOBIN 11.7 gm/dL (12.0-15.0); LYMPHOCYTES 14.7 %; MCH 27.7 pg (26.0-34.0); MCHC 31.3 g/dL (28.0-37.0); MCV 88.5 fL (80.0-100.0); MONOCYTES 9.8 %; MPV 7.2 fl. (7.2-11.1); NUCLEATED RBCS 0 /100WBC; PLATELET COUNT* 379 thou/uL (150-400); POLYS 74.1 %; RBC 4.21 mil/uL (4.20-5.00); RDW-CV 17.8 % (10.5-14.5); WBC 14.8 thou/uL (4.0-11.0)
[2019-01-17 00:19] LABS: APTT 24.5 Seconds (25.0-31.3); PROTIME 10.7 Seconds (9.20-11.50)
[2019-01-17 00:28] LABS: ALBUMIN 3.3 g/dL (3.4-5.0); CALCIUM 9.6 mg/dL (8.5-10.1); CREATININE 0.9 mg/dL (0.6-1.3); POTASSIUM 3.3 mmol/L (3.5-5.1); TOTAL BILIRUBIN 0.6 mg/dL (<0.1-1.0); TOTAL PROTEIN 7.2 g/dL (6.4-8.2)
[2019-01-17 02:44] LABS: URINE BLOOD NEGATIVE (Negative); URINE CLARITY CLEAR; URINE COLOR YELLOW; URINE GLUCOSE-RANDOM NEGATIVE (Negative); URINE KETONES NEGATIVE (Negative); URINE LEUKOCYTES-REFLEX NEGATIVE (Negative); URINE NITRITE-REFLEX NEGATIVE (Negative); URINE PROTEIN NEGATIVE (Negative); URINE SPECIFIC GRAVITY 1.025 (1.005-1.030); URINE UROBILINOGEN 0.2 E.U./dl (0.2-1.0)
[2019-01-17 02:45] LABS: ICTOTEST (BILI CONFIRMATORY) Negative (Negative); URINE BILIRUBIN 1+ (Negative)
[2019-01-17 06:23] VITALS: BP 130/70
== END 2019-01-17 06:25 | disposition home or self-care (01) ==
LOC: M.ERS 23:38
PROVIDERS: Personal Emergency Response Attendant
DX: S00.11XA Contusion of right eyelid and periocular area, initial encounter (principal); I10 Essential (primary) hypertension; M19.90 Unspecified osteoarthritis, unspecified site; E78.00 Pure hypercholesterolemia, unspecified; E78.5 Hyperlipidemia, unspecified; Z88.8 Allergy status to other drugs, medicaments and biological substances; Z88.1 Allergy status to other antibiotic agents; Z88.2 Allergy status to sulfonamides; Z88.6 Allergy status to analgesic agent; Z90.710 Acquired absence of both cervix and uterus; W06.XXXA Fall from bed, initial encounter; Y92.89 Other specified places as the place of occurrence of the external cause; Y93.89 Activity, other specified; Y99.8 Other external cause status

== ENCOUNTER 2019-01-19 23:47 | Inpatient (IN) | payer OTHER ==
[~2019-01-19] VITALS: Ht 157.5 cm; Wt 56.7 kg
[2019-01-19 23:49] VITALS: BP 128/60
[2019-01-20 00:27] LABS: ABSOLUTE BASOPHILS 0.1 thou/uL (0.0-0.2); ABSOLUTE EOSINOPHILS 0.1 thou/uL (0.0-0.7); ABSOLUTE LYMPHOCYTES 1.5 thou/uL (0.8-5.3); ABSOLUTE MONOCYTES 1.4 thou/uL (0.0-1.2); ABSOLUTE NEUTROPHILS 10.2 thou/uL (1.6-8.1); BASOPHILS 0.8 %; EOSINOPHILS 0.6 %; HEMATOCRIT 35.1 % (37.0-47.0); LYMPHOCYTES 11.6 %; MCH 27.9 pg (26.0-34.0); MCHC 31.3 g/dL (28.0-37.0); MCV 89.1 fL (80.0-100.0); MONOCYTES 10.2 %; MPV 7.4 fl. (7.2-11.1); NUCLEATED RBCS 0 /100WBC; PLATELET COUNT* 310 thou/uL (150-400); POLYS 76.8 %; RBC 3.94 mil/uL (4.20-5.00); WBC 13.3 thou/uL (4.0-11.0)
[2019-01-20 00:53] LABS: URINE BILIRUBIN NEGATIVE (Negative); URINE BLOOD 3+ (Negative); URINE CLARITY CLEAR; URINE COLOR YELLOW; URINE GLUCOSE-RANDOM NEGATIVE (Negative); URINE KETONES NEGATIVE (Negative); URINE PROTEIN 1+ (Negative); URINE SPECIFIC GRAVITY 1.025 (1.005-1.030); URINE UROBILINOGEN 0.2 E.U./dl (0.2-1.0)
[2019-01-20 00:57] LABS: ALBUMIN 3.3 g/dL (3.4-5.0); CALCIUM 9.3 mg/dL (8.5-10.1); CREATININE 1.2 mg/dL (0.6-1.3); POTASSIUM 3.7 mmol/L (3.5-5.1); TOTAL BILIRUBIN 0.8 mg/dL (<0.1-1.0); TOTAL PROTEIN 6.8 g/dL (6.4-8.2)
[2019-01-20 00:57] LABS: URINE LEUKOCYTES-REFLEX 2+ (Negative); URINE NITRITE-REFLEX POSITIVE (Negative)
[2019-01-20 00:59] LABS: BACTERIA-REFLEX >30 Many /HPF (None Seen); CASTS None Seen /LPF (None Seen); CRYSTALS None Seen /LPF (None Seen); MUCUS 4-6 Moderate strn/LPF (None Seen); SQUAMOUS 0-3 Few /LPF (0-3); URINE RBC >20 Many /HPF (0-2); URINE WBC-REFLEX >25 Many /HPF (0-5); WBC CLUMPS Many (None Seen)
[2019-01-20 01:00] LABS: INR 1.1; PROTIME 11.2 Seconds (9.20-11.50)
[2019-01-20 02:30] VITALS: BP 132/79
[2019-01-20 03:26] VITALS: BP 138/72
[2019-01-20 09:00] VITALS: BP 146/85
[2019-01-20 12:13] VITALS: BP 133/73
[2019-01-20 15:27] VITALS: BP 141/78
[2019-01-20 20:45] VITALS: BP 117/61
[2019-01-21 04:26] LABS: ABSOLUTE BASOPHILS 0.1 thou/uL (0.0-0.2); ABSOLUTE EOSINOPHILS 0.2 thou/uL (0.0-0.7); ABSOLUTE LYMPHOCYTES 1.8 thou/uL (0.8-5.3); ABSOLUTE MONOCYTES 0.9 thou/uL (0.0-1.2); ABSOLUTE NEUTROPHILS 7.6 thou/uL (1.6-8.1); BASOPHILS 0.7 %; EOSINOPHILS 1.9 %; HEMATOCRIT 30.2 % (37.0-47.0); HEMOGLOBIN 9.8 gm/dL (12.0-15.0); LYMPHOCYTES 16.7 %; MCH 28.4 pg (26.0-34.0); MCHC 32.6 g/dL (28.0-37.0); MCV 87.1 fL (80.0-100.0); MONOCYTES 8.2 %; MPV 7.6 fl. (7.2-11.1); NUCLEATED RBCS 0 /100WBC; PLATELET COUNT* 238 thou/uL (150-400); POLYS 72.5 %; RBC 3.46 mil/uL (4.20-5.00); RDW-CV 17.4 % (10.5-14.5); WBC 10.5 thou/uL (4.0-11.0)
[2019-01-21 04:56] LABS: CALCIUM 8.2 mg/dL (8.5-10.1); POTASSIUM 3.6 mmol/L (3.5-5.1)
[2019-01-21 09:00] VITALS: BP 136/66
[2019-01-21 16:00] VITALS: BP 127/50
[2019-01-21 21:00] VITALS: BP 132/72
[2019-01-22 08:05] VITALS: BP 123/43
[2019-01-22 16:45] VITALS: BP 121/55
[2019-01-22 21:00] VITALS: BP 135/64
[2019-01-23 04:44] LABS: CALCIUM 8.4 mg/dL (8.5-10.1); CREATININE 0.8 mg/dL (0.6-1.3); MAGNESIUM 2.1 mg/dL (1.8-2.4); POTASSIUM 4.2 mmol/L (3.5-5.1)
[2019-01-23] MEDS ORDERED: CEFUROXIME250 MG PO (07:53)
[2019-01-23] MEDS ORDERED: CYMBALTA30 MG PO (07:53)
[2019-01-23] MEDS ORDERED: FOSAMAX 70 MG T70 MG PO (07:57)
[2019-01-23 08:00] VITALS: BP 128/61
[2019-01-23] MEDS ORDERED: HYDROCODON-ACE1 EAC7 PO (08:07)
[2019-01-23] MEDS ORDERED: OXYCODONE HCL 55 MG PO (08:08)
[2019-01-23 15:26] VITALS: BP 129/68
[2019-01-23 20:00] VITALS: BP 120/60
[2019-01-24 07:50] VITALS: BP 163/65
[2019-01-24 13:20] VITALS: BP 163/65
== END 2019-01-24 15:00 | DRG 551 ==
LOC: M.ERS 23:47 → M.TBA-ER 01-20 00:27 → M.ORTHSURG 01-20 00:27
PROVIDERS: Family Medicine; Internal Medicine; Nurse Practitioner Family; ADMIT Family Medicine
DX: S32.10XA Unspecified fracture of sacrum, initial encounter for closed fracture (principal); S32.431A Displaced fracture of anterior column [iliopubic] of right acetabulum, initial encounter for closed fracture; I50.22 Chronic systolic (congestive) heart failure; N30.01 Acute cystitis with hematuria; I13.0 Hypertensive heart and chronic kidney disease with heart failure and stage 1 through stage 4 chronic kidney disease, or unspecified chronic kidney disease; M80.051A Age-related osteoporosis with current pathological fracture, right femur, initial encounter for fracture; M19.90 Unspecified osteoarthritis, unspecified site; E78.00 Pure hypercholesterolemia, unspecified; E86.0 Dehydration; I25.10 Atherosclerotic heart disease of native coronary artery without angina pectoris; I48.91 Unspecified atrial fibrillation; M48.061 Spinal stenosis, lumbar region without neurogenic claudication; M54.30 Sciatica, unspecified side; N18.3 Chronic kidney disease, stage 3 (moderate); K44.9 Diaphragmatic hernia without obstruction or gangrene; M25.371 Other instability, right ankle; G89.29 Other chronic pain; M25.571 Pain in right ankle and joints of right foot; Z66 Do not resuscitate; M25.512 Pain in left shoulder; M25.511 Pain in right shoulder; B96.20 Unspecified Escherichia coli [E. coli] as the cause of diseases classified elsewhere; Z90.710 Acquired absence of both cervix and uterus; Z88.1 Allergy status to other antibiotic agents; Z88.2 Allergy status to sulfonamides; Z88.8 Allergy status to other drugs, medicaments and biological substances; Z83.3 Family history of diabetes mellitus; Z95.5 Presence of coronary angioplasty implant and graft; Z79.82 Long term (current) use of aspirin; Z79.899 Other long term (current) drug therapy; W18.39XA Other fall on same level, initial encounter; Y93.89 Activity, other specified; Y92.89 Other specified places as the place of occurrence of the external cause; Y99.8 Other external cause status

== ENCOUNTER 2019-03-01 03:31 | Emergency (ER) | payer OTHER ==
[~2019-03-01] VITALS: Ht 157.5 cm; Wt 55.8 kg
[~2019-03-01 03:31] MED LIST changes: +CEFUROXIME250 MG PO; +CYMBALTA30 MG PO; +FOSAMAX 70 MG T70 MG PO; +OXYCODONE HCL 55 MG PO
[2019-03-01] MEDS ORDERED: ZOFRAN ODT4 MG DISSOLVE (03:55)
[2019-03-01] MEDS ORDERED: CHOLESTYRAMINE P4 GM PO (03:56)
[2019-03-01 06:03] VITALS: BP 129/57
== END 2019-03-01 06:08 | disposition home or self-care (01) ==
LOC: M.ERS 03:31
DX: S00.83XA Contusion of other part of head, initial encounter (principal); I10 Essential (primary) hypertension; M19.90 Unspecified osteoarthritis, unspecified site; E78.00 Pure hypercholesterolemia, unspecified; Z90.710 Acquired absence of both cervix and uterus; Z88.2 Allergy status to sulfonamides; Z88.1 Allergy status to other antibiotic agents; Z88.8 Allergy status to other drugs, medicaments and biological substances; W06.XXXA Fall from bed, initial encounter; Y93.89 Activity, other specified; Y92.89 Other specified places as the place of occurrence of the external cause; Y99.8 Other external cause status

== ENCOUNTER 2019-09-09 00:38 | Inpatient (IN) | payer OTHER ==
[~2019-09-09] VITALS: Ht 167.6 cm; Wt 61.5 kg
[~2019-09-09 00:38] MED LIST changes: +CHOLESTYRAMINE P4 GM PO; +ZOFRAN ODT4 MG DISSOLVE
[2019-09-09] MEDS ORDERED: BACLOFEN 10MG T10 MG PO (00:46)
[2019-09-09] MEDS ORDERED: NORCO 5-325 TA1 EAC1 PO (00:47)
[2019-09-09] MEDS ORDERED: SLOW FE142 MG PO (00:49)
[2019-09-09] MEDS ORDERED: TRAZODONE HCL50 MG PO (00:49)
[2019-09-09] MEDS ORDERED: NEURONTIN 300M300 M2 PO (00:51)
[2019-09-09] MEDS ORDERED: NEURONTIN300 MG PO (00:53)
[2019-09-09] MEDS ORDERED: VITAMIN C500 M2 PO (00:54)
[2019-09-09] MEDS ORDERED: VITCB500GO PO (00:55)
[2019-09-09 01:23] VITALS: BP 122/56
[2019-09-09 02:12] LABS: URINE BILIRUBIN NEGATIVE (Negative); URINE BLOOD NEGATIVE (Negative); URINE CLARITY CLEAR; URINE COLOR YELLOW; URINE GLUCOSE-RANDOM NEGATIVE (Negative); URINE KETONES NEGATIVE (Negative); URINE LEUKOCYTES-REFLEX TRACE (Negative); URINE PROTEIN NEGATIVE (Negative); URINE SPECIFIC GRAVITY 1.015 (1.005-1.030); URINE UROBILINOGEN 0.2 E.U./dl (0.2-1.0)
[2019-09-09 02:14] LABS: URINE NITRITE-REFLEX POSITIVE (Negative)
[2019-09-09 02:31] LABS: BE -0.7 mmol/L (-2 to +3); PO2 89.3 mmHg (75.0-100.0); pH 7.304 (7.340-7.450)
[2019-09-09 02:35] LABS: PCO2 53.8 mmHg (35.0-45.0)
[2019-09-09 02:36] LABS: HEMATOCRIT 30.7 % (37.0-47.0); MCV 84.1 fL (80.0-100.0); MPV 7.5 fl. (7.2-11.1); NUCLEATED RBCS 0 /100WBC
[2019-09-09 02:43] LABS: ABSOLUTE BASOPHILS 0.1 thou/uL (0.0-0.2); ABSOLUTE EOSINOPHILS 0.3 thou/uL (0.0-0.7); ABSOLUTE LYMPHOCYTES 1.6 thou/uL (0.8-5.3); ABSOLUTE MONOCYTES 0.9 thou/uL (0.0-1.2); ABSOLUTE NEUTROPHILS 5.1 thou/uL (1.6-8.1); BASOPHILS 0.8 %; EOSINOPHILS 3.8 %; MCH 27.5 pg (26.0-34.0); MCHC 32.7 g/dL (28.0-37.0); MONOCYTES 10.9 %; PLATELET COUNT* 209 thou/uL (150-400); POLYS 64.5 %; RBC 3.65 mil/uL (4.20-5.00); RDW-CV 16.2 % (10.5-14.5); WBC 7.9 thou/uL (4.0-11.0)
[2019-09-09 02:47] LABS: CALCIUM 9.1 mg/dL (8.5-10.1); CREATININE 1.4 mg/dL (0.6-1.3); POTASSIUM 4.2 mmol/L (3.5-5.1)
[2019-09-09 02:48] LABS: BACTERIA-REFLEX >30 Many /HPF (None Seen); CRYSTALS None Seen /LPF (None Seen); HYALINE CASTS 0-3 Few /LPF (None Seen); SQUAMOUS >10 Many /LPF (0-3); URINE RBC None Seen /HPF (0-2); URINE WBC-REFLEX 6-15 Few /HPF (0-5)
[2019-09-09 02:52] LABS: ALBUMIN 3.1 g/dL (3.4-5.0); TOTAL BILIRUBIN 0.2 mg/dL (<0.1-1.0); TOTAL PROTEIN 6.5 g/dL (6.4-8.2)
[2019-09-09 03:54] VITALS: BP 125/56
[2019-09-09 04:30] VITALS: BP 141/60
[2019-09-09] MEDS ORDERED: FUROSEMIDE 40 M40 MG PO (05:12)
[2019-09-09 08:00] VITALS: BP 144/82
[2019-09-09 12:20] LABS: BE -1.7 mmol/L (-2 to +3); PCO2 49.3 mmHg (35.0-45.0); PO2 64.8 mmHg (75.0-100.0); pH 7.317 (7.340-7.450)
[2019-09-09 12:45] VITALS: BP 191/94
--- NOTE | 2019-09-09 18:02 | EKG ---
[place] [address] ELECTROCARDIOGRAM REPORT Name: DMITRY RANDOLPH Room: [address] ADM IN M.R.#: [id number] Admission: 09/09/19 Attend Phys: Tawana Mcpherson Discharge: Date of : 37 Report #: [id number] THIS REPORT FOR: //name// [facility] ED Test Date: 2019-09-09 Test Time: 00:45:19 Pat Name: DMITRY RANDOLPH Department: Room: [address] Gender: F Relations Director: [place] : 1935 Requested By: Priscilla Corley Order Number: [id number] Jean Carlos MD: Tereso Lima Measurements Intervals [place] Rate: 73 P: 14 KS: 173 QRS: 11 QRSD: 90 T: 30 QT: 397 QTc: 438 Interpretive Statements Sinus rhythm Consider left ventricular hypertrophy Compared to ECG 12/13/2018 08:32:28 Possible ischemia no longer present Electronically Signed On 09-09-2019 18:02:38 CDT by Tereso Lima [email or web address] <ELECTRONICALLY SIGNED> By: Tereso Lima MD, [facility] 09/09/19 180 0045 0045 Tereso Lima MD, [facility] /EPI
[2019-09-09 21:15] VITALS: BP 149/70
[2019-09-10] VITALS: BP 170/71
[2019-09-10 04:00] VITALS: BP 151/74
[2019-09-10 04:26] LABS: HEMATOCRIT 35.7 % (37.0-47.0); HEMOGLOBIN 11.6 gm/dL (12.0-15.0); MCHC 32.4 g/dL (28.0-37.0); MCV 83.5 fL (80.0-100.0); MPV 7.8 fl. (7.2-11.1); RBC 4.28 mil/uL (4.20-5.00); RDW-CV 16.8 % (10.5-14.5); WBC 11.5 thou/uL (4.0-11.0)
[2019-09-10 05:19] LABS: ALBUMIN 3.2 g/dL (3.4-5.0); CALCIUM 8.7 mg/dL (8.5-10.1); POTASSIUM 3.6 mmol/L (3.5-5.1); TOTAL BILIRUBIN 0.7 mg/dL (<0.1-1.0); TOTAL PROTEIN 7.2 g/dL (6.4-8.2)
[2019-09-10 08:00] VITALS: BP 149/75
[2019-09-10 12:00] VITALS: BP 140/72
[2019-09-10 15:59] VITALS: BP 178/94
[2019-09-10 20:00] VITALS: BP 160/92
[2019-09-11 01:01] VITALS: BP 152/93
[2019-09-11 03:43] VITALS: BP 124/55
[2019-09-11 12:00] VITALS: BP 140/88
[2019-09-11 20:00] VITALS: BP 150/75
[2019-09-12 00:49] VITALS: BP 134/82
[2019-09-12 04:46] LABS: HEMATOCRIT 27.6 % (37.0-47.0); MCH 26.7 pg (26.0-34.0); MCHC 31.9 g/dL (28.0-37.0); MCV 83.6 fL (80.0-100.0); MPV 8.2 fl. (7.2-11.1); RBC 3.3 mil/uL (4.20-5.00); RDW-CV 16.6 % (10.5-14.5); WBC 6.9 thou/uL (4.0-11.0)
[2019-09-12 05:00] VITALS: BP 128/65
[2019-09-12 05:13] LABS: ALBUMIN 2.7 g/dL (3.4-5.0); CALCIUM 8.3 mg/dL (8.5-10.1); CREATININE 0.9 mg/dL (0.6-1.3); POTASSIUM 3.1 mmol/L (3.5-5.1); TOTAL BILIRUBIN 0.6 mg/dL (<0.1-1.0); TOTAL PROTEIN 6.2 g/dL (6.4-8.2)
[2019-09-12 05:29] LABS: HEMOGLOBIN 8.8 gm/dL (12.0-15.0)
[2019-09-12 08:00] VITALS: BP 138/63
[2019-09-12 11:55] VITALS: BP 147/66
--- NOTE | 2019-09-12 13:56 | 2DMMODE ---
[place] [address] 2 D/M-MODE ECHOCARDIOGRAM Name: DMITRY RANDOLPH Room: [facility]#: [id number] Admission: 09/09/19 Attend Phys: Quincy Loyd Discharge: Date of : 37 Date of Service: 09/12/19 1356 Report #: [id number] THIS REPORT FOR: //name// APPROVED REPORT Study performed: 09/12/2019 10:54:03 EXAM: Comprehensive 2D, Doppler, and color-flow Echocardiogram Patient Location: In-Patient Room #: [facility] Status: routine BSA: 1.72 HR: 96 bpm BP: 138/63 mmHg Rhythm: NSR Other Information Study Quality: Good Indications Dyspnea 2D Dimensions IVSd: 12.63 (7-11mm) LVOT Diam: 18.62 (18-24mm) LVDd: 40.53 mm PWd: 12.03 (7-11mm) Ascending Ao: 34.00 (22-36mm) LVDs: 31.52 (25-40mm) Aortic Root: 32.87 mm Volumes Left Atrial Volume (Systole) LA ESV Index: 35.10 mL/m2 Aortic Valve AoV Peak Isac.: 1.48 m/s AO Peak Gr.: 8.78 mmHg LVOT Max P.76 mmHg AO Mean Gr.: 4.53 mmHg LVOT Mean P.42 mmHg LVOT Max V: 0.83 m/s AO V2 VTI: 26.09 cm LVOT Mean V: 0.55 m/s YI (VTI): 1.70 cm2 LVOT V1 VTI: 16.29 cm Mitral Valve E/A Ratio: 1.04 MV Decel. Time: 151.25 ms MV E Max Isac.: 1.08 m/[place] [address] 2 D/M-MODE ECHOCARDIOGRAM Name: DMITRY RANDOLPH Room: [address] [place] .R.#: [id number] Admission: 09/09/19 Attend Phys: Quincy Loyd Discharge: Date of : 37 Date of Service: 09/12/19 1356 Report #: [id number] MV PHT: 43.86 ms MVA (PHT): 5.02 cm2 TDI E/Lateral E': 12.00 Lateral E' Isac.: 0.09 m/s Pulmonary Valve PV Peak Isac.: 0.94 m/s PV Peak Gr.: 3.50 mmHg Tricuspid Valve RAP Estimate: 5.00 mmHg TR Peak Gr.: 35.96 mmHg RVSP: 41.00 mmHg PA Pressure: 41.00 mmHg Left Ventricle The left ventricle is normal size. There is global hypokinesis of the left ventricle. Mild concentric left ventricular hypertrophy. Left ventricular systolic function is mildly decreased. LVEF is 40-45%. The left ventricular diastolic function is normal. Right Ventricle The right ventricle is normal size. The right ventricular systolic function is normal. Atria Left atrium is mildly dilated. Right atrium is dilated. Aortic Valve The aortic valve is normal in structure. No aortic regurgitation is present. There is no aortic valvular stenosis. Mitral Valve The mitral valve is normal in structure. Mild mitral regurgitation. No evidence of mitral valve stenosis. Tricuspid Valve The tricuspid valve is normal in structure. Mild tricuspid regurgitation. estimated pa pressure 50 mm Hg Pulmonic Valve The pulmonary valve is normal in structure. There is no pulmonic valvular regurgitation. Great Vessels The aortic root is normal in size. IVC [place] [address] 2 D/M-MODE ECHOCARDIOGRAM Name: DMITRY RANDOLPH Room: [address] IN [facility]#: [id number] Admission: 09/09/19 Attend Phys: Quincy Loyd Discharge: Date of : 37 Date of Service: 09/12/19 1356 Report #: [id number] collapses >50% with inspiration. Pericardium There is no pericardial effusion. <Conclusion> Mild concentric left ventricular hypertrophy. LVEF is 40-45%. Left atrium is mildly dilated. Mild mitral regurgitation. Mild tricuspid regurgitation. estimated pa pressure 50 mm Hg <ELECTRONICALLY SIGNED> By: Tereso Lima MD, FACC 09/12/19 1356 55 55 Tereso Lima MD, FACC /INF
[2019-09-12 16:42] VITALS: BP 134/64
[2019-09-12 20:00] VITALS: BP 136/68
[2019-09-13 00:37] VITALS: BP 160/69
[2019-09-13 04:10] VITALS: BP 141/47
[2019-09-13 04:39] LABS: HEMATOCRIT 32.2 % (37.0-47.0); HEMOGLOBIN 10.3 gm/dL (12.0-15.0); MCH 26.8 pg (26.0-34.0); MPV 8.1 fl. (7.2-11.1); RBC 3.83 mil/uL (4.20-5.00); RDW-CV 16.8 % (10.5-14.5); WBC 7.5 thou/uL (4.0-11.0)
[2019-09-13 05:01] LABS: ALBUMIN 2.9 g/dL (3.4-5.0); CALCIUM 8.8 mg/dL (8.5-10.1); TOTAL BILIRUBIN 0.5 mg/dL (<0.1-1.0); TOTAL PROTEIN 6.6 g/dL (6.4-8.2)
[2019-09-13 08:15] VITALS: BP 131/60
[2019-09-13 11:32] VITALS: BP 153/59
[2019-09-13 15:25] VITALS: BP 153/72
[2019-09-13 20:00] VITALS: BP 160/77
[2019-09-14 01:30] VITALS: BP 142/81
[2019-09-14 05:06] LABS: HEMATOCRIT 32.3 % (37.0-47.0); HEMOGLOBIN 10.5 gm/dL (12.0-15.0); MCHC 32.6 g/dL (28.0-37.0); MCV 82.7 fL (80.0-100.0); RBC 3.9 mil/uL (4.20-5.00); RDW-CV 16.5 % (10.5-14.5); WBC 8.5 thou/uL (4.0-11.0)
[2019-09-14 05:10] LABS: CALCIUM 8.8 mg/dL (8.5-10.1); POTASSIUM 3.4 mmol/L (3.5-5.1)
[2019-09-14 05:30] VITALS: BP 140/46
[2019-09-14 08:00] VITALS: BP 136/60
[2019-09-14 12:26] VITALS: BP 151/60
[2019-09-14 16:00] VITALS: BP 179/96
[2019-09-14 20:00] VITALS: BP 135/81
[2019-09-15] VITALS: BP 120/60
[2019-09-15 04:00] VITALS: BP 142/67
[2019-09-15 05:12] LABS: CALCIUM 8.8 mg/dL (8.5-10.1); CREATININE 1.1 mg/dL (0.6-1.3); MAGNESIUM 2.2 mg/dL (1.8-2.4); POTASSIUM 3.5 mmol/L (3.5-5.1)
[2019-09-15 08:00] VITALS: BP 136/70
[2019-09-15 12:58] VITALS: BP 90/48
[2019-09-15 16:06] VITALS: BP 105/51
[2019-09-15 20:00] VITALS: BP 73/37
[2019-09-16] VITALS: BP 84/42
[2019-09-16 04:00] VITALS: BP 112/59
[2019-09-16 07:05] VITALS: BP 111/48
[2019-09-16] MEDS ORDERED: RISPERIDONE 1 MG1 MG PO (09:40)
[2019-09-16] MEDS ORDERED: AUGMENTIN 875-1 EACH PO (09:40)
[2019-09-16] MEDS ORDERED: ACIDOPHILUS1 EAC4 PO (09:40)
[2019-09-16] MEDS ORDERED: LIDOPATCH1 EACH TOP (09:40)
[2019-09-16] MEDS ORDERED: MSL20MG/ML SUBLING (11:04)
[2019-09-16] MEDS ORDERED: LORAZEPAM I2 MG/1 ML SUBLING (11:05)
[2019-09-16 12:29] VITALS: BP 99/50
[2019-09-16 16:58] VITALS: BP 185/83
== END 2019-09-16 17:00 | DRG 871 ==
LOC: M.ERS 00:38 → M.2W 02:46 → M.TBA-ER 02:46 → M.2W 03:58
PROVIDERS: Family Medicine; Internal Medicine; Personal Emergency Response Attendant; ADMIT Internal Medicine
DX: A41.9 Sepsis, unspecified organism (principal); J69.0 Pneumonitis due to inhalation of food and vomit; I50.23 Acute on chronic systolic (congestive) heart failure; J96.01 Acute respiratory failure with hypoxia; G93.41 Metabolic encephalopathy; J96.02 Acute respiratory failure with hypercapnia; N39.0 Urinary tract infection, site not specified; N17.9 Acute kidney failure, unspecified; I13.0 Hypertensive heart and chronic kidney disease with heart failure and stage 1 through stage 4 chronic kidney disease, or unspecified chronic kidney disease; M19.90 Unspecified osteoarthritis, unspecified site; N18.3 Chronic kidney disease, stage 3 (moderate); I25.10 Atherosclerotic heart disease of native coronary artery without angina pectoris; G89.4 Chronic pain syndrome; I48.91 Unspecified atrial fibrillation; E78.5 Hyperlipidemia, unspecified; I27.20 Pulmonary hypertension, unspecified; B96.20 Unspecified Escherichia coli [E. coli] as the cause of diseases classified elsewhere; F11.229 Opioid dependence with intoxication, unspecified; G30.9 Alzheimer's disease, unspecified; F02.80 Dementia in other diseases classified elsewhere, unspecified severity, without behavioral disturbance, psychotic disturbance, mood disturbance, and anxiety; E78.00 Pure hypercholesterolemia, unspecified; Z90.710 Acquired absence of both cervix and uterus; Z87.81 Personal history of (healed) traumatic fracture; Z86.14 Personal history of Methicillin resistant Staphylococcus aureus infection; Z88.1 Allergy status to other antibiotic agents; Z88.2 Allergy status to sulfonamides; Z88.8 Allergy status to other drugs, medicaments and biological substances; Z83.3 Family history of diabetes mellitus; Z95.5 Presence of coronary angioplasty implant and graft; Z79.891 Long term (current) use of opiate analgesic; Z79.899 Other long term (current) drug therapy